=== PATIENT | female | born 1940 | race Caucasian/White ===

== ENCOUNTER 2020-09-03 08:07 | Outpatient (REF) | payer OTHER, SELFPAY ==
--- OUTSIDE RECORDS SUMMARY | 2020-09-04 08:40 | XMS_ITS | Clinical Summary ---
:1940 Author Organization [email or web address] [place] [address] Care Team Providers Name Role Phone Nelly Simmons MD Primary Care Provider Allergies No Known Allergies Medications Medication Sig Dispensed Refills Start Date End Date Status cholecalciferol (VITAMIN Take 1,000 Units 0 Active D3) 1,000 unit tablet by mouth once daily. multivitamin oral Take 1 tablet by 0 Active mouth once daily. calcium carbonate Take 600 mg by 0 Active (OS-NITIN) 600 mg calcium mouth once (1,500 mg) tablet daily. tiotropium (SPIRIVA) 18 Inhale 18 mcg 0 Active mcg inhalation capsule into the lungs once daily. zolpidem (AMBIEN) 5 MG Take 5 mg by 0 Active tablet mouth once nightly as needed for sleep. metoprolol tartrate Take 0.5 tablets 30 tablet 0 10/11/2016 Active (LOPRESSOR) 25 MG tablet (12.5 mg total) by mouth 2 (two) times a day. Active Problems Problem Noted Date Atrial fibrillation 10/11/2016 A-fib 10/10/2016 Atrial fibrillation with rapid ventricular response Asthma 10/10/2016 Immunizations Name Administration Dates Next Due Covid-19 Vaccine Mrna (Pf) (OnRequest Images/MitoProd) 04/07/2020 Social History Tobacco Use Types Packs/Day Years Used Date Never Smoker Alcohol Use Drinks/Week oz/Week Comments Yes 3 Glasses of wine 3.0 Sex Assigned at Date Recorded Not on file Last Filed Vital Signs Vital Sign Reading Time Taken Comments Blood Pressure 110/68 10/11/2016 8:15 AM PDT Pulse 73 10/11/2016 9:59 AM PDT Temperature 35.9 ??C (96.6 ??F) 10/11/2016 8:14 AM PDT Respiratory Rate 20 10/11/2016 8:14 AM PDT Oxygen Saturation 95% 10/11/2016 8:14 AM PDT Inhaled Oxygen Concentration - - Weight 72.9 kg (160 lb 12.8 oz) 10/11/2016 5:00 AM PDT Height 166.4 cm (5' 5.5) 10/10/2016 5:30 PM PDT Body Mass Index 26.35 10/10/2016 5:30 PM PDT Plan of Treatment Health Maintenance Due Date Last Done Comments DXA SCAN 1940 HEPATITIS C SCREENING 06/28/1959 DTAP/TDAP/TD VACCINES (1 - Tdap) 1960 SHINGLES VACCINES (1 of 2) 06/28/1991 PNEUMOCOCCAL 65+ YRS (1 of 1 - 2006 [id number]) MEDICARE ANNUAL WELLNESS (YEAR 2 03/13/2017 or FIRST YEAR if no IPPE) DEPRESSION SCREENING (12+) 03/12/2020 FALLS RISK SCREENING 03/12/2020 TOBACCO CESSATION SCREENING (12+) 03/12/2020 COVID-19 VACCINE (2 - Pfizer 04/28/2020 04/07/2020 2-dose series) INFLUENZA VACCINE Completed 12/05/2019, 12/16/2018, 12/31/2017, Additional history exists Insurance Payer Benefit Plan / Subscriber ID Effective Dates Phone Addre ss Type Group COVID VACCINE COVID VACCINE [id number] Effective for all ADMIN / TESTING ADMIN / TESTING dates [employer] [place] [place] [id number] 03/12/2016-Present MEDICARE MEDICARE PPO Advance Directives Documents on File Type Date Recorded Patient Package Delivery Room Service Runner Explanati on Advanced Directives Latest Code Status on File Code Status Date Activated Date Inactivated Comments Full Code 10/10/2016 5:14 AM 10/11/2016 2:09 PM This code status was determined by: Spouse Patient
--- OUTSIDE RECORDS SUMMARY | 2020-09-04 08:40 | XMS_ITS | Clinical Summary ---
:1940 Author Organization [facility] Address [address] [place] [address] Care Team Providers Name Role Phone Pcp Primary Care Provider Unavailable Social History Tobacco Use Types Packs/Day Years Used Date Never Assessed Sex Assigned at Date Recorded Not on file Plan of Treatment Health Maintenance Due Date Last Done Comments Hepatitis C Screening 1940 COVID-19 Vaccine (1) 1953 Depression Screening (PHQ-2) 1953 DTaP, Tdap, and Td Vaccines (1 - 1960 Tdap) Lipid Disorders Screening 1986 Zoster Vaccine (1 of 2) 06/28/1991 Osteoporosis Screening 2006 Pneumococcal Vaccine: 65+ years (1 2006 of 1 - PPSV23) Influenza Vaccine (Season Ended) 2020 Hepatitis A Vaccine Aged Out No longer el igible based on patient's age to complete this topic Hepatitis B Vaccine Aged Out No longer el igible based on patient's age to complete this topic Insurance Payer Benefit Plan / Subscriber ID Effective Phone Address T ype Group Dates [facility] [id number] 2016-[facility] MEDADVANTAGE PPO nt MEDICARE
--- OUTSIDE RECORDS SUMMARY | 2020-09-04 08:40 | XMS_ITS | Encounter Summary ---
:1940 Author Organization [employer] [facility] [place] [address] Care Team Providers Name Role Phone Nelly Simmons MD Primary Care Provider Reason for Visit Reason Comments Atrial Fibrillation Auth/Cert Status Reason Specialty Diagnoses / Procedures Referred By Edgar mac Referred To Contact Encounter Details Date Type Department Care Team [facility] [address] [place] [id number] Atrial fibrillation 10/[facility] Zachary Wallace MD [address] [place] [address] with jake [place] [address] [place] [address] [place] [address] ventricular response Med/Surg (HCC) (Primary Dx) [address], [address] [place] [id number] Social History Tobacco Use Types Packs/Day Years Used Date Never Smoker Alcohol Use Drinks/Week oz/Week Comments Yes 3 Glasses of wine 3.0 Sex Assigned at Date Recorded Not on file documented as of this encounter Last Filed Vital Signs Vital Sign Reading [...] Mass Index 26.35 10/10/2016 5:30 PM PDT documented in this encounter Functional Status Functional Status Response Date of Assessment Patient's Vision Adequate to Safely Complete Daily Yes 10/10/2016 Activities Patient's Judgement Adequate to Safely Complete Daily Yes 10/10/2016 Activities Cognitive Status Response Date of Assessment Patient's Memory Adequate to Safely Complete Daily Yes 10/10/2016 Activities documented as of this encounter Discharge Summaries Candace Hsu, - 10/11/2016 9:38 AM PDT HOSPITAL DISCHARGE SUMMARY Patient Name: Kylee Lundberg Admit Date: 10/10/2016 Discharge Date: 10/11/2016 ADMISSION DIAGNOSES: Atrial fibrillation with rapid ventricular response (HCC) [I48.91] Present on Admission: ??? A-fib (HCC) ??? Atrial fibrillation with rapid ventricular response (HCC) ??? Atrial fibrillation (HCC) DISCHARGE DIAGNOSES: Active Problems: A-fib (HCC) Atrial fibrillation with rapid ventricular response (HCC) Asthma Atrial fibrillation (HCC) SPECIALIST: NONE PROCEDURES PERFORMED: ?? XR Chest 2 Views [[id number]] Resulted: 10/10/16 0059 ? Order Status: Completed Updated: 10/10/16 0100 ? Narrative: ? Examination: ??10/10/2016 12:58 AM CHEST X-RAY HISTORY: Chest pain Comparison: ??No relevant comparisons are available at the time of dictation. TECHNIQUE: ??Two views FINDINGS: ?? Parenchyma/Pleura: ??There is no evidence for pneumothorax, pleural effusion or airspace opacity. Linear stranding is seen in the bilateral costophrenic sulci. Emphysematous changes are present. ??Milddiaphragmatic flattening is present. Heart and vasculature: ??Normal. Mediastinum/Aorta: ??Normal. Abdomen: ??Normal. Osseous: ??No acute process. ? Impression: ? Bilateral linear stranding is seen in the bases likely represent scarring with differential of chronic atelectasis. 2. Emphysematous changes are present with mild hyperinflation. Transthoracic Echocardiogram Indication: Atrial Fibrillation BP: ? 115/70 HR: ? 70 Rhythm: ? Sinus Findings ? Technical Comments: Color flow images and Doppler velocities were obtained to assess for valvular insufficiency, stenosis and/or intracardiac shunts. The study quality is fair. ?? Left Ventricle: The left ventricular chamber size is normal. The left ventricular wall thickness is normal. There is normal left ventricular systolic function. The ejection fraction is calculated to be 64% using the Treadwell's method. ??There is normal diastolic function of the left ventricle. Left Atrium: Left atrial size is normal. Right Ventricle: The right ventricular cavity size is normal. The right ventricular global systolic function is low normal. Right Atrium: The right atrium is mildly enlarged. ?? Aortic Valve: The aortic valve is trileaflet. Color Flow Doppler and Doppler velocities: there is no evidence of aortic insufficiency. Mitral Valve: Mild mitral leaflet calcification is visualized. There is mitral annular calcification. Trace mitral regurgitation is recorded. Tricuspid Valve: The tricuspid valve leaflets are normal. ??Mild tricuspid regurgitation is recorded. Pulmonic Valve: The pulmonic valve appears normal. Color Flow Doppler and Doppler velocities: there is no evidence of pulmonic regurgitation. Pericardium: The pericardium appears normal. Aorta: The aorta appears normal. ?? Pulmonary Artery Hypertension: There is evidence of borderline pulmonary hypertension. Venous: The inferior vena cava appears normal. There is a greater than 50% respiratory change in the inferior vena cava dimension. Summary: There is no previous study for comparison. An echocardiogram is recommended in 2 years to follow-up. Conclusions: There is normal left ventricular systolic and diastolic function. The LV ejection fraction is calculated to be 64% using the Treadwell's method. The right atrium is mildly enlarged. Mild tricuspid regurgitation is recorded. HOSPITAL COURSE: This is a 76 y.o. female with past medical history significant for atrial fibrillation for last 8 - 12 YRS, on metoprolol but not anticoagulated, history of asthma/COPD presented to emergency department with fast irregular heartbeat. Patient was found to have atrial fibrillation with RVR. Blood pressure was 180/115 and heart rates in 160s. On admission patient was treated with esmolol drip and heparin infusion and then transition to oral metoprolol and she spontaneously converted to normal sinus rhythm with HR in 70-80s. Patient remained hemodynamically stable. Discussed her stroke risk prevention strategies with medication, but patient wanted to discuss this in more detail with primary care doctor and she already was recommended to have Gen. cardiology evaluation. Her CHADS-Vasc score is at least 3 based on the gender and age. Echocardiogram showed normal EF with mild tricuspid regurgitation. Patient will continue with metoprolol 12.5 mg twice a day for heart rate control. In addition recommended to start full dose aspirin. She was given a handout about the atrial fibrillation and about the different medications that could prevent the stroke risk and risk of bleeding. EXAM: General Eval: WDWN, calm, alert, cooperative in NAD HEENT: NCAT, no TM, Oropharynx clear, sclera anicteric, conjunctiva clear, no JVD, no cervical or supraclavicular MARLENE, carotid pulsations 2+ bilaterally w/o bruit Lungs: CTA, good patient effort Heart: Regular rate and rhythm without rub murmur or gallop, PMI is non palpable Abdomen: NABS, soft, flat, non- distended, nontender without HSM Extremities: Warm and dry without cyanosis, clubbing, edema, or rash; dorsalis pedis pulses are 2+ bilaterally Neuro: No neuro focal deficits. CONDITION AT DISCHARGE: Stable and Improved. CODE STATUS: Full Code ACTIVITIES: As tolerated FOLLOW UP: Contact information for follow-up Oren Simmons MD Specialty: Family Medicine Relationship: PCP - General Jeniffer [address] [place] [address] Next Steps: Call today Instructions: For hospitalization discharge follow up IN THE NEXT 2 WEEKS. LABORATORY STUDIES ON THE DAY OF DISCHARGE: Recent Results (from the past 24 hour(s)) Troponin I Collection Time: 10/10/16 11:23 AM Result Value Ref Range Troponin I <0.012 <0.034 ng/mL Unfractionated heparin anti-10A level Collection Time: 10/10/16 3:41 PM Result Value Ref Range Heparin assay UFH (Anti-Xa) 0.61 0.30 - 0.70 IU/mL Unfractionated heparin anti-10A level Collection Time: 10/10/16 9:44 PM Result Value Ref Range Heparin assay UFH (Anti-Xa) 0.47 0.30 - 0.70 IU/mL Basic metabolic panel Collection Time: 10/11/16 7:20 AM Result Value Ref Range Sodium 143 135 - 145 mmol/L Potassium 3.8 3.5 - 5.1 mmol/L Chloride 109 (H) 98 - 107 mmol/L CO2,Total 24 22 - 30 mmol/L Anion Gap 10 5 - 16 mmol/L Osmolality, Calculated 285 275 - 295 mOsm/K Glucose 86 74 - 106 mg/dL Calcium 8.3 (L) 8.4 - 10.4 mg/dL BUN 14 7 - 17 mg/dL Creatinine 0.65 0.52 - 1.04 mg/dL BUN/Creatinine Ratio 22 7 - 24 GFR if >90 >=60 mL/min/1.73m2 GFR if not 89 >=60 mL/min/1.73m2 CBC and differential Collection Time: 10/11/16 7:20 AM Result Value Ref Range WBC 7.3 3.8 - 11.0 K/mcL RBC 4.78 3.70 - 5.10 M/mcL Hemoglobin 14.0 11.3 - 15.5 g/dL Hematocrit 43 34 - 46 % MCV 89 80 - 100 fL MCH 29.3 27.0 - 34.0 pg MCHC 32.9 32.0 - 35.5 g/dL RDW 14.1 11.0 - 15.5 % Platelets 248 150 - 400 K/mcL MPV 11.2 8.8 - 12.0 fL Nucleated RBC 0 0 - 0 % nRBC# 0.00 10*3/uL Neutrophils % 39 38 - 70 % Lymphocytes % 52 (H) 15 - 48 % Monocytes % 7 0 - 12 % Eosinophils % 2 0 - 7 % Basophils % 0 0 - 2 % Neut# 2.8 1.9 - 7.4 K/mcL Lymph# 3.8 1.0 - 3.9 K/mcL Monos# 0.5 0.0 - 0.8 K/mcL Eos# 0.2 0.0 - 0.5 K/mcL Baso# 0.0 0.0 - 0.1 K/mcL Immature Granulocytes % 0 % Immature Granulocytes Absolute 0.0 K/mcL RESULTS PENDING AT THE TIME OF DISCHARGE: NONE DIET: regular diet ALLERGIES: No Known Allergies MEDICATIONS: Medication List START taking these medications aspirin 325 MG EC tablet Take 1 tablet (325 mg total) by mouth once daily. metoprolol tartrate 25 MG tablet Commonly known as: LOPRESSOR Take 0.5 tablets (12.5 mg total) by mouth 2 (two) times a day. CONTINUE taking these medications calcium carbonate 600 mg calcium (1,500 mg) tablet Commonly known as: OS-NITIN cholecalciferol 1,000 unit tablet Commonly known as: VITAMIN D3 multivitamin oral tiotropium 18 mcg inhalation capsule Commonly known as: SPIRIVA zolpidem 5 MG tablet Commonly known as: AMBIEN STOP taking these medications metoprolol succinate 25 MG 24 hr tablet Commonly known as: TOPROL-XL Medication Instructions: PLEASE NOTE MEDICATION CHANGES Where to Get Your Medications [id number] [facility] [address] ??? aspirin 325 MG EC tablet ??? metoprolol tartrate 25 MG tablet TIME SPENT ON DISCHARGE SERVICES: MORE THAN 30 MINUTES Candace Hsu DO 10/11/2016 9:38 AM documented in this encounter Discharge Instructions MedicationsCandace Hsu DO - 10/11/2016 9:35 AM PDTPLEASE NOTE MEDICATION CHANGES Discharge Instr - ActivityCandace Hsu DO - 10/11/2016 9:35 AM PDTRESUME YOUR REGULAR ACTIVITY Discharge Instr - DietCandace Hsu DO - 10/11/2016 9:35 AM PDTRESUME YOUR REGULAR DIET Additional Candace Knapp DO - 10/11/2016 Below are important instructions written by your doctor It was our pleasure being a part of your care team at [facility] You were admitted to the hospital because of: ?? IRREGULAR FAST HEART BEAT (ATRIAL FIBRILLATION) which we treated with MEDICATION After leaving the hospital it is important that you do these things: ?? TAKE MEDICATIONS PRESCRIBED ?? START TAKING ASPIRIN UNTIL YOU HAVE A DISCUSSION WITH YOUR PCP OR [employer] MANAGER IF YOU NEED TO BE ON DIFFERENT MEDICATION FOR STROKE PREVENTION Please contact Oren Simmons MD or return to the Emergency Department if you have any of these signs or symptoms: ?? CHEST PAIN, UNCONTROLLED HEART RATE, SHORTNESS OF BREATH, PASSING OUT OR LEG SWELLING. Please see the rest of this document for follow up appointments and medication changes: Sincerely, Candace Hsu, DO AttachmentsThe following attachments cannot be sent through Care Everywhere. ATRIAL FIBRILLATION (MONGOLIAN)ATRIAL FIBRILLATION, [id number] (MONGOLIAN) METOPROLOL TABLETS (MONGOLIAN)documented in this encounter Medications at Time of Discharge Medication Sig Dispensed Refills Start Date End Date calcium carbonate (OS-NITIN) Take 600 mg by 0 600 mg calcium (1,500 mg) mouth once daily. tablet cholecalciferol (VITAMIN Take 1,000 Units 0 D3) 1,000 unit tablet by mouth once daily. metoprolol tartrate Take 0.5 tablets 30 tablet 0 10/11/2016 (LOPRESSOR) 25 MG tablet (12.5 mg total) by mouth 2 (two) times a day. multivitamin oral Take 1 tablet by 0 mouth once daily. tiotropium (SPIRIVA) 18 mcg Inhale 18 mcg into 0 inhalation capsule the lungs once daily. zolpidem (AMBIEN) 5 MG Take 5 mg by mouth 0 tablet once nightly as needed for sleep. aspirin 325 MG EC tablet Take 1 tablet (325 30 tablet 11 04/201610/11/2017 mg total) by mouth once daily. documented as of this encounter Progress Notes Prabhakar Dhillon, PharmD - 10/10/2016 10:16 PM PDT PHARMACY SERVICES ??? HEPARIN INFUSION PER PHARMACY PROTOCOL Assessment/ Plan Patient is currently THERAPEUTIC on heparin, with infusion at 900 units/hr. 1. Heparin Bolus: none needed per protocol 2. Heparin Drip Rate: Continue at current rate of 900 units/hr per protocol 3. Please draw next STAT Anti-Xa at 1000 on 10/11 RN to notify pharmacy for assessment if level has returned. 4. Pharmacy will continue to monitor the patient???s coagulation status daily. Subjective / Objective Dr. Denzel Morris requested heparin infusion dosing per pharmacy weight based protocol. Kylee Lundberg is a 76 y.o. female being treated with heparin for ACS/OTHER. Other anticoagulation: none Recent Labs 10/10/16 0025 10/10/16 0222 10/10/16 0814 10/10/16 1541 10/10/16 2144 HEPARINUNFR -- < > <0.10* 0.73* 0.61 0.47 INR -- -- 0.9 -- -- -- HGB 14.5 -- 14.4 -- -- -- HCT 43 -- 43 -- -- -- PLT 250 -- 245 -- -- -- PTT -- -- 28 -- -- -- < > = values in this interval not displayed. INFORMATIONAL ONLY - FROM HEPARIN CONSULT HEPARIN ADMINISTRATION WORKSHEET Disease State: ACS/Other NOT FOR USE IN STROKE Patient: Kylee LUNDBERG Physician: Dr Robin Morris Room Number: ED-20 Weight (kg): 73 Height (cm.): 168 Diagnosis: ACS / Other [place] Weight (kg): 59.7 Dosing Weight (kg): 65 Dosing weight will be used if the patient's actual body weight is greater than 20% above their idealbody weight To Begin Heparin Therapy: 1. Calculations based on a body weight of: 65 kg 2. Bolus Heparin: 70 Units/kg = 4000 Units (Bolus) 3. Heparin Continuous Infusion: 15 Units/kg/Hour = 1000 Units/Hour = 20 mL/h ITEM #4. Order an Anti-Xa (HEP UFH) level 6 hours after any dosage change, adjusting heparin infusion by the sliding scale below. When two (2) consecutive Anti-Xa (HEP UFH) levels are therapeutic, order the Anti-Xa level daily (at 1000), and re-adjust the heparin drip if needed. Lab to process each Anti-Xa (HEP UFH) level on a STAT basis. Laboratory: Baseline Hemogram, PTT, and PT/INR prior to heparin (if no baseline labs available). Hemogram every 3 days while on Heparin. Adjust Heparin infusion based on this sliding Anti-Xa level scale: Anti-Xa level (Units/mL): Bolus and Drip Adjustments, as Follows: Less than 0.1 Bolus Dose: Increase rate from previous dose: 4600 Units 200 Units/Hour *See item #4 above for follow-up Anti-Xa level testing 0.1 - 0.29 Bolus Dose: Increase rate from previous dose: 2300 Units 100 Units/Hour *See item #4 above for follow-up Anti-Xa level testing 0.3 - 0.7 THERAPEUTIC RANGE No Change *See item #4 above for follow-up Anti-Xa level testing 0.71 - 0.8 Decrease from previous dose: 100 Units/Hour *See item #4 above for follow-up Anti-Xa level testing 0.81 - 1 Hold Infusion for 30 mins. Decrease rate from previous dose: 200 Units/Hour *See item #4 above for follow-up Anti-Xa level testing Greater than 1 Hold Infusion for 60 mins. Decrease rate from previous dose: 200 Units/Hour *See item #4 above for follow-up Anti-Xa level testing Thank You, Prabhakar Dhillon, PharmD 10/10/2016 TrandeCandace shpeherd DO - 10/10/2016 4:24 PM PDTReviewed notes and labs Reviewed Care Every Where Patient was examined by me Reports feeling well. No shortness of breath She usually feels her atrial fibrillation, the day before her atrial fibrillation was at 80s, but this morning it was fast. She takes metoprolol. Diagnosis is since 2014 BP 141/78 (BP Location: Right arm, Patient Position: Lying) Pulse 69 Temp 36.8 ??C (98.2 ??F) (Oral) Resp 18 Ht 166.4 cm (5' 5.5) Wt 74.1 kg (163 lb 5.8 oz) SpO2 92% BMI 26.77 kg/m2 Gen: NAD, white elderly female laying in bed. HEENT: Atraumatic, normocephalic, PERRLA. Moist mucous membranes Cardiac: Regular rate and rhythm. No murmur. No edema. Lungs: Clear to auscultation bilaterally no wheezes or crackles Neuro: No neuro focal deficits Psych: Oriented to person time and place and situation. Plan: Pending echocardiogram Continue with metoprolol Continue with IV heparin for stroke risk reduction Given patient's age and that she speak now most likely she will need long-term anticoagulation especially when her heart rates are very from normal 80s to accelerated rhythm. We will discuss options for anticoagulation in more detail tomorrow as we have results of her echocardiogram. im, Maggie Jimenes PharmD - 10/10/2016 4:12 PM PDT PHARMACY SERVICES ??? HEPARIN INFUSION PER PHARMACY PROTOCOL Assessment/ Plan Patient is currently THERAPEUTIC on heparin, with infusion at 900 units/hr. 1. Heparin Bolus: none needed per protocol 2. Heparin Drip Rate: Continue at current rate of 900 units/hr per protocol 3. Please draw next STAT Anti-Xa 6 hours after previous therapeutic lab. Draw next lab at 2200 RN [facility] pharmacy for assessment if level has returned. 4. Pharmacy will continue to monitor the patient???s coagulation status daily. Subjective / Objective Dr. Denzel Morris requested heparin infusion dosing per pharmacy weight based protocol. Kylee Lundberg is a 76 y.o. female being treated with heparin for ACS/OTHER. Other anticoagulation: none Recent Labs 10/10/16 0025 10/10/16 0222 10/10/16 0814 10/10/16 1541 HEPARINUNFR -- <0.10* 0.73* 0.61 INR -- 0.9 -- -- HGB 14.5 14.4 -- -- HCT 43 43 -- -- PLT 250 245 -- -- PTT -- 28 -- -- INFORMATIONAL ONLY - FROM HEPARIN CONSULT HEPARIN ADMINISTRATION WORKSHEET Disease State: ACS/Other NOT FOR USE IN STROKE Patient: Kylee LUNDBERG Physician: Dr Robin Morris Room Number: ED-20 Weight (kg): 73 Height (cm.): 168 Diagnosis: ACS / Other [place] Weight (kg): 59.7 Dosing Weight (kg): 65 Dosing weight will be used if the patient's actual body weight is greater than 20% above their idealbody weight To Begin Heparin Therapy: 1. Calculations based on a body weight of: 65 kg 2. Bolus Heparin: 70 Units/kg = 4000 Units (Bolus) 3. Heparin Continuous Infusion: 15 Units/kg/Hour = 1000 Units/Hour = 20 mL/h ITEM #4. Order an Anti-Xa (HEP UFH) level 6 hours after any dosage change, adjusting heparin infusion by the sliding scale below. When two (2) consecutive Anti-Xa (HEP UFH) levels are therapeutic, order the Anti-Xa level daily (at 1000), and re-adjust the heparin drip if needed. Lab to process each Anti-Xa (HEP UFH) level on a STAT basis. Laboratory: Baseline Hemogram, PTT, and PT/INR prior to heparin (if no baseline labs available). Hemogram every 3 days while on Heparin. Adjust Heparin infusion based on this sliding Anti-Xa level scale: Anti-Xa level (Units/mL): Bolus and Drip Adjustments, as Follows: Less than 0.1 Bolus Dose: Increase rate from previous dose: 4600 Units 200 Units/Hour *See item #4 above for follow-up Anti-Xa level testing 0.1 - 0.29 Bolus Dose: Increase rate from previous dose: 2300 Units 100 Units/Hour *See item #4 above for follow-up Anti-Xa level testing 0.3 - 0.7 THERAPEUTIC RANGE No Change *See item #4 above for follow-up Anti-Xa level testing 0.71 - 0.8 Decrease from previous dose: 100 Units/Hour *See item #4 above for follow-up Anti-Xa level testing 0.81 - 1 Hold Infusion for 30 mins. Decrease rate from previous dose: 200 Units/Hour *See item #4 above for follow-up Anti-Xa level testing Greater than 1 Hold Infusion for 60 mins. Decrease rate from previous dose: 200 Units/Hour *See item #4 above for follow-up Anti-Xa level testing Thank You, Maggie Jacques, PharmD 10/10/2016 Steven Mcduffie PharmD - 10/10/2016 9:33 AM PDT PHARMACY SERVICES ??? HEPARIN INFUSION PER PHARMACY PROTOCOL Assessment/ Plan Patient is currently SUPRATHERAPEUTIC on heparin, with infusion at 1000 units/hr. 1. Heparin Bolus: none needed per protocol 2. Heparin Drip Rate: decrease rate to 900 units/hr 3. Please draw next STAT Anti-Xa 6 hours after rate change. Draw next lab at 1600 RN to notify pharmacy for assessment if level has returned. 4. Pharmacy will continue to monitor the patient???s coagulation status daily. Subjective / Objective Dr. Denzel Morris requested heparin infusion dosing per pharmacy weight based protocol. Kylee Lundberg is a 76 y.o. female being treated with heparin for ACS/OTHER. Other anticoagulation: none Recent Labs 10/10/16 0025 10/10/16 0222 10/10/16 0814 HEPARINUNFR -- <0.10* 0.73* INR -- 0.9 -- HGB 14.5 14.4 -- HCT 43 43 -- PLT 250 245 -- PTT -- 28 -- INFORMATIONAL ONLY - FROM HEPARIN CONSULT HEPARIN ADMINISTRATION WORKSHEET Disease State: ACS/Other NOT FOR USE IN STROKE Patient: Kylee LUNDBERG Physician: Dr Robin Morris Room Number: ED-20 Weight (kg): 73 Height (cm.): 168 Diagnosis: ACS / Other [place] Weight (kg): 59.7 Dosing Weight (kg): 65 Dosing weight will be used if the patient's actual body weight is greater than 20% above their idealbody weight To Begin Heparin Therapy: 1. Calculations based on a body weight of: 65 kg 2. Bolus Heparin: 70 Units/kg = 4000 Units (Bolus) 3. Heparin Continuous Infusion: 15 Units/kg/Hour = 1000 Units/Hour = 20 mL/h ITEM #4. Order an Anti-Xa (HEP UFH) level 6 hours after any dosage change, adjusting heparin infusion by the sliding scale below. When two (2) consecutive Anti-Xa (HEP UFH) levels are therapeutic, order the Anti-Xa level daily (at 1000), and re-adjust the heparin drip if needed. Lab to process each Anti-Xa (HEP UFH) level on a STAT basis. Laboratory: Baseline Hemogram, PTT, and PT/INR prior to heparin (if no baseline labs available). Hemogram every 3 days while on Heparin. Adjust Heparin infusion based on this sliding Anti-Xa level scale: Anti-Xa level (Units/mL): Bolus and Drip Adjustments, as Follows: Less than 0.1 Bolus Dose: Increase rate from previous dose: 4600 Units 200 Units/Hour *See item #4 above for follow-up Anti-Xa level testing 0.1 - 0.29 Bolus Dose: Increase rate from previous dose: 2300 Units 100 Units/Hour *See item #4 above for follow-up Anti-Xa level testing 0.3 - 0.7 THERAPEUTIC RANGE No Change *See item #4 above for follow-up Anti-Xa level testing 0.71 - 0.8 Decrease from previous dose: 100 Units/Hour *See item #4 above for follow-up Anti-Xa level testing 0.81 - 1 Hold Infusion for 30 mins. Decrease rate from previous dose: 200 Units/Hour *See item #4 above for follow-up Anti-Xa level testing Greater than 1 Hold Infusion for 60 mins. Decrease rate from previous dose: 200 Units/Hour *See item #4 above for follow-up Anti-Xa level testing Thank You, Steven Wheeler, PharmD 10/10/2016 Stef Bass, [facility] - 10/10/2016 2:07 AM PDT PHARMACY SERVICES ??? HEPARIN INFUSION PER PHARMACY PROTOCOL Assessment/ Plan Patient is currently STARTING on heparin, with infusion at 1000 units/hr. 1. Heparin Bolus: Administer 4000 units per protocol 2. Heparin Drip Rate: Initiate at rate of 1000 units/hr 3. Please draw next STAT Anti-Xa 6 hours after initiation. Draw next lab at 0830 on Oct 10. RN to notify pharmacy for assessment if level has returned. 4. Pharmacy will continue to monitor the patient???s coagulation status daily. Subjective / Objective Dr. Denzel Morris requested heparin infusion dosing per pharmacy weight based protocol. Kylee Lundberg is a 76 y.o. female being treated with heparin for ACS/OTHER. Other anticoagulation: none Recent Labs 10/10/16 0025 HGB 14.5 HCT 43 PLT 250 INFORMATIONAL ONLY - FROM HEPARIN CONSULT HEPARIN ADMINISTRATION WORKSHEET Disease State: ACS/Other NOT FOR USE IN STROKE Patient: Kylee LUNDBERG Physician: Dr Robin Morris Room Number: ED-20 Weight (kg): 73 Height (cm.): 168 Diagnosis: ACS / Other [place] Weight (kg): 59.7 Dosing Weight (kg): 65 Dosing weight will be used if the patient's actual body weight is greater than 20% above their idealbody weight To Begin Heparin Therapy: 1. Calculations based on a body weight of: 65 kg 2. Bolus Heparin: 70 Units/kg = 4000 Units (Bolus) 3. Heparin Continuous Infusion: 15 Units/kg/Hour = 1000 Units/Hour = 20 mL/h ITEM #4. Order an Anti-Xa (HEP UFH) level 6 hours after any dosage change, adjusting heparin infusion by the sliding scale below. When two (2) consecutive Anti-Xa (HEP UFH) levels are therapeutic, order the Anti-Xa level daily (at 1000), and re-adjust the heparin drip if needed. Lab to process each Anti-Xa (HEP UFH) level on a STAT basis. Laboratory: Baseline Hemogram, PTT, and PT/INR prior to heparin (if no baseline labs available). Hemogram every 3 days while on Heparin. Adjust Heparin infusion based on this sliding Anti-Xa level scale: Anti-Xa level (Units/mL): Bolus and Drip Adjustments, as Follows: Less than 0.1 Bolus Dose: Increase rate from previous dose: 4600 Units 200 Units/Hour *See item #4 above for follow-up Anti-Xa level testing 0.1 - 0.29 Bolus Dose: Increase rate from previous dose: 2300 Units 100 Units/Hour *See item #4 above for follow-up Anti-Xa level testing 0.3 - 0.7 THERAPEUTIC RANGE No Change *See item #4 above for follow-up Anti-Xa level testing 0.71 - 0.8 Decrease from previous dose: 100 Units/Hour *See item #4 above for follow-up Anti-Xa level testing 0.81 - 1 Hold Infusion for 30 mins. Decrease rate from previous dose: 200 Units/Hour *See item #4 above for follow-up Anti-Xa level testing Greater than 1 Hold Infusion for 60 mins. Decrease rate from previous dose: 200 Units/Hour *See item #4 above for follow-up Anti-Xa level testing Thank You, Stef Bass RPH 10/10/2016 documented in this encounter H&P Notes Zachary Wallace MD - 10/10/2016 3:55 AM PDT HISTORY & PHYSICAL NOTE PATIENT NAME: Kylee Lundberg DATE OF ADMISSION: 10/10/2016 PRIMARY CARE PHYSICIAN: Oren Simmons MD SPECIALISTS: CHIEF COMPLAINT: Irregular heartbeat REASON FOR ADMISSION: Atrial fibrillation with RVR HISTORY PRESENT ILLNESS: Kylee Lundberg is a 76 y.o. female with past medical history of atrial fibrillation for the past 8-12 years. She describes it as Paroxsymal, on metoprolol 12.5 mg daily, not on anticoagulation , who presented to the ED with chief complaint of irregular heartbeat , patient reports few hours prior to admission patient developed fluttering of heart, she measured her blood pressure at that instance which was 180/115 and her pulse rate was noted to be 160s, she denies shortness of breath , chest pain , lightheadedness , dizziness . In the ED her heart rate was noted to be 150s to 170s, Esmolol gtt and heparin was initiated. Duringmy evaluation telemetry shows normal sinus rhythm with heart rate in 70s. PAST MEDICAL HISTORY: Patient Active Problem List Diagnosis ??? A-fib (HCC) ??? Atrial fibrillation with rapid ventricular response (HCC) ??? Asthma SURGICAL HISTORY: Past Surgical History: Procedure Laterality Date ??? HYSTERECTOMY ??? JOINT REPLACEMENT ALLERGIES: Not on File MEDICATIONS: None ADVANCE DIRECTIVES: Full code SOCIAL HISTORY: Denies smoking, reports occasional alcohol use and occasional marijuana use for sleep, last use was a month ago FAMILY HISTORY: Mother with history of Parkinson, father with history of heart attack REVIEW OF SYSTEMS: As per history of present illness and past medical history. Comprehensive review is otherwise negative. PHYSICAL EXAMINATION: Vital Signs: BP 113/73 Pulse 76 Temp 36.3 ??C (97.4 ??F) (Oral) Ht 167.6 cm (5' 6) Wt 72.6kg (160 lb) SpO2 94% BMI 25.82 kg/m2 General Eval: WDWN, calm, alert, cooperative in NAD HEENT: NCAT, no TM, Oropharynx clear, sclera anicteric, conjunctiva clear, no JVD, no cervical or supraclavicular MARLENE, carotid pulsations 2+ bilaterally w/o bruit Lungs: CTA, good patient effort Heart: Regular rate and rhythm without rub, murmur or gallop, PMI is non palpable Abdomen: NABS, soft, flat, non-distended, nontender without HSM Extremities: Warm and dry without cyanosis, clubbing, edema, or rash; dorsalis pedis pulses are 2+ bilaterally Neuro: Motor strength is 5/5 in all four extremities, sensation intact to light touch LABS: Recent Results (from the past 36 hour(s)) CBC and differential Collection Time: 10/10/16 12:25 AM Result Value Ref Range WBC 7.5 3.8 - 11.0 K/mcL RBC 4.94 3.70 - 5.10 M/mcL Hemoglobin 14.5 11.3 - 15.5 g/dL Hematocrit 43 34 - 46 % MCV 88 80 - 100 fL MCH 29.4 27.0 - 34.0 pg MCHC 33.4 32.0 - 35.5 g/dL RDW 13.8 11.0 - 15.5 % Platelets 250 150 - 400 K/mcL MPV 10.6 8.8 - 12.0 fL Nucleated RBC 0 0 - 0 % nRBC# 0.00 10*3/uL Neutrophils % 44 38 - 70 % Lymphocytes % 46 15 - 48 % Monocytes % 7 0 - 12 % Eosinophils % 2 0 - 7 % Basophils % 0 0 - 2 % Neut# 3.3 1.9 - 7.4 K/mcL Lymph# 3.4 1.0 - 3.9 K/mcL Monos# 0.5 0.0 - 0.8 K/mcL Eos# 0.2 0.0 - 0.5 K/mcL Baso# 0.0 0.0 - 0.1 K/mcL Immature Granulocytes % 0 % Immature Granulocytes Absolute 0.0 K/mcL Comprehensive metabolic panel Collection Time: 10/10/16 12:25 AM Result Value Ref Range Sodium 143 135 - 145 mmol/L Potassium 3.6 3.5 - 5.1 mmol/L Chloride 105 98 - 107 mmol/L CO2,Total 24 22 - 30 mmol/L Anion Gap 14 5 - 16 mmol/L Glucose 128 (H) 74 - 106 mg/dL Calcium 9.0 8.4 - 10.4 mg/dL BUN 17 7 - 17 mg/dL Creatinine 0.69 0.52 - 1.04 mg/dL BUN/Creatinine Ratio 25 (H) 7 - 24 GFR if >90 >=60 mL/min/1.73m2 GFR if not 83 >=60 mL/min/1.73m2 Osmolality, Calculated 288 275 - 295 mOsm/K Protein,Total 6.7 6.3 - 8.2 g/dL Albumin 4.1 3.5 - 5.0 g/dL Globulin 2.6 1.8 - 3.5 g/dL A/G Ratio 1.6 (No normals established) Bilirubin,Total 0.4 0.2 - 1.3 mg/dL Alkaline Phosphatase 66 38 - 126 IU/L ALT (SGPT) 37 9 - 52 IU/L AST (SGOT) 30 14 - 36 U/L TSH with reflex to FT4, if indicated Collection Time: 10/10/16 12:25 AM Result Value Ref Range TSH 3.744 0.470 - 4.680 uIU/mL Troponin I, POC Collection Time: 10/10/16 12:31 AM Result Value Ref Range RALS Troponin I 0.00 0 - 0.08 ng/mL CBC, no diff (hemogram) Collection Time: 10/10/16 2:22 AM Result Value Ref Range WBC 8.3 3.8 - 11.0 K/mcL RBC 4.84 3.70 - 5.10 M/mcL Hemoglobin 14.4 11.3 - 15.5 g/dL Hematocrit 43 34 - 46 % MCV 88 80 - 100 fL MCH 29.8 27.0 - 34.0 pg MCHC 33.6 32.0 - 35.5 g/dL RDW 14.0 11.0 - 15.5 % Platelets 245 150 - 400 K/mcL MPV 10.5 8.8 - 12.0 fL Protime-INR baseline Collection Time: 10/10/16 2:22 AM Result Value Ref Range Protime 12.5 11.8 - 14.0 sec INR 0.9 0.9 - 1.1 Heparin level - STAT Anti-Xa level q6h x 2 Collection Time: 10/10/16 2:22 AM Result Value Ref Range Heparin assay UFH (Anti-Xa) <0.10 (L) 0.30 - 0.70 IU/mL Activated partial thromboplastin time Collection Time: 10/10/16 2:22 AM Result Value Ref Range aPTT 28 26 - 36 sec ASSESSMENT: Patient Active Problem List Diagnosis ??? A-fib (HCC) ??? Atrial fibrillation with rapid ventricular response (HCC) ??? Asthma PLAN: A. fib with RVR - Admit under observation with telemetry - TSH within normal range - Trend troponin - will obtain echocardiogram - start metoprolol 12.5 by mouth twice a day, esmolol gtt was started in the ED, will plan on titrating it off to goal heart rate of less than 110 - CHADsvasc of 3, (age and female sex)- Anticoagulation with heparin, consider NOAC Asthma- stable DVT ppx- on heparin drip ZACHARY WALLACE MD 10/10/2016 3:56 AM documented in this encounter ED Notes Odilia Haddad RN - 10/10/2016 4:58 PM PDTPt is alert and oriented x 4/4, pain free, speaking full sentences. Wheeled to the floor via gurney by this RN. Pt on heparin drip for transport. Running at 900units/hr via pump. Odilia Barbosa RN - 10/10/2016 4:16 PM PDTPt is pain free. Frustrated because she is still in the ER. There is still not a ready bed for her on the floor. Odilia Barbosa RN - 10/10/2016 3:44 PM PDTLab at bedside for xa draw. Pt them ambulated to the bathroom. Gait steady. Pt is upset about still being in the ED. This RN let her know again that we are working on getting her admitted to the floor and that we are just waiting for a room. Odilia Barbosa RN - 10/10/2016 2:19 PM PDTPt is sleeping. Done with her lunch. No acute distress. Odilia Barbosa RN - 10/10/2016 1:26 PM PDTPt ambulated to the bathroom. Gait steady. Odilia Barbosa RN - 10/10/2016 11:12 AM PDTPt is sitting up in bed reading the newspaper. No acute distress. Odilia Barbosa RN - 10/10/2016 9:18 AM PDTPt was given a breakfast tray. Sitting up in bed eating. Odilia Barbosa RN - 10/10/2016 8:45 AM Gavin RN ordered breakfast for pt per her request. Odilia Barbosa RN - 10/10/2016 7:54 AM PDTPt is resting quietly. at bedside. No acute distress. Odilia Barbosa RN - 10/10/2016 7:21 AM PDTReceived report from Samara SOLORIO and assumed pt care. Pt was up tot he bedside commode to urinate. Now back in bed. Pain free. No acute distress. Samara Valerio RN - 10/10/2016 5:34 AM PDTPatient appears to be sleeping, no distress noted at this time. Samara Beach RN - 10/10/2016 3:30 AM PDTDr. Wallace at bedside. Denzel Flores MD - 10/10/2016 12:16 AM PDT [facility] EMERGENCY DEPARTMENT PHYSICIAN ASSESSMENT Patient Name: Kylee Lundberg : 1940 Primary Care Provider: Oren Simmons MD Date of Service: 10/10/2016 [place] [facility] History Taken From: the patient. CHIEF COMPLAINT: Atrial Fibrillation HISTORY OF PRESENT ILLNESS: Kylee Lundberg is a 76 y.o. female seen for complaints of a rapid heartbeat. Patient does have a history of atrial fibrillation and is apparently had it for several years. She has never required a cardioversion the patient states that she intermittently pops in and out of atrial fibrillation and normally she can control it by taking a pill of metoprolol. On rare occasion she has to take 1- 1/2 pills. The patient's last episode of atrial fibrillation she believes was 2- 3 weeks ago. On 10/08/16 the patient had an episode of atrial fibrillation that began at approximately 2000 hrs. and persisted until she went to bed that night. She took 37.5 mg of metoprolol but continued to have an irregular heartbeat. She states that she otherwise felt okay and contacted her primary care provider in the morning but that she did not need to seek immediate medical attention. The patient checked her pulse in the morning and felt that she was out of her atrial fibrillation. This evening at 2230 hrs. her heart began racing. Her heart rate increased to 150-170. He had no chest pain, pressure, shortness of breath, nausea, vomiting, or diaphoresis associated with the above complaints. She presents now with complaints of a rapid heartbeat. Patient is brought in by ambulance. She did take 25 mg of her metoprolol at 2230 hrs. She received 6 mg of additional metoprolol while in route by ambulance. The patient denies any history of thyroid disease or heart valve abnormality. She does not have a drop forge hand but she's been referred to one in [place]. Patient utilizes metoprolol 25 mg tablets. She takes half a pill every day in order to help suppressthe arrhythmia, 1-1-1/2 pills if she develops the arrhythmia. PAST MEDICAL HISTORY: Atrial fibrillation PAST SURGICAL HISTORY: Past Surgical History: Procedure Laterality Date ??? HYSTERECTOMY ??? JOINT REPLACEMENT fractured ankle CURRENT MEDICATIONS: Current Discharge Medication List CONTINUE these medications which have NOT CHANGED Details calcium carbonate (OS-NITIN) 600 mg calcium (1,500 mg) tablet Take 600 mg by mouth once daily. cholecalciferol (VITAMIN D3) 1,000 unit tablet Take 1,000 Units by mouth once daily. metoprolol succinate (TOPROL-XL) 25 MG 24 hr tablet Take 25 mg by mouth once daily. multivitamin oral Take 1 tablet by mouth once daily. tiotropium (SPIRIVA) 18 mcg inhalation capsule Inhale 18 mcg into the lungs once daily. zolpidem (AMBIEN) 5 MG tablet Take 5 mg by mouth once nightly as needed for sleep. ALLERGIES: No Known Allergies SOCIAL HISTORY: The patient reports that she has never smoked. She does not have any smokeless tobacco history on file. She reports that she drinks about 1.8 oz of alcohol per week She reports that she does not use illicit drugs. she lives with her . Patient rarely consumes alcohol but did have some this evening. FAMILY HISTORY: No premature coronary artery disease but father did have an ND in his 70s REVIEW OF SYSTEMS Constitutional: Denies fever, chills, weakness or fatigue. Eyes: Denies photophobia or discharge. ENT: Denies sore throat or ear pain. Respiratory: Positive for chronic cough/COPD unchanged from baseline Cardiovascular: Denies chest pain, positive for palpitations and tachycardia GI: Denies abdominal pain, nausea, vomiting, or diarrhea. Normal appetite : No dysuria. No flank pain. Musculoskeletal: Denies back pain. Denies extremity pain or swelling. Skin: Denies rash, bruising or bleeding Neurologic: Denies headache, focal weakness or sensory changes. No dizziness Endocrine: No polyuria or polydipsia Lymphatic: Denies swollen glands. Psychiatric: Positive for severe stress, recent All systems negative except as documented above. PHYSICAL EXAMINATION Vital Signs: Temperature 36.5, blood pressure 101/79, heart rate 136, saturations 95% on room air, respiratory rate 18 Constitutional: Pleasant, well-nourished, well-developed female who is alert and cooperative she isnontoxic in appearance Head: Normocephalic, atraumatic Eyes: PERRL, EOMI, conjunctiva normal, no discharge. Nose: No rhinorrhea. Mouth: Oropharynx moist. No exudates. Neck: Nontender, supple, no lymphadenopathy Lymphatic: No lymphadenopathy noted. Cardiovascular: Tachycardic irregular rate and rhythm, no murmurs, no rubs, no gallops. Intact distal pulses, no tenderness, no cyanosis, no clubbing. Respiratory: Normal breath sounds, no respiratory distress, no wheezing, no chest tenderness. Abdomen: Bowel sounds are present. Abdomen is soft, no tenderness, no masses, no rebound or guarding. No organomegaly. No hernia. : No CVA tenderness. Bladder is nontender and not distended. Skin: Warm, dry, no erythema, no rash, no edema. Back: No tenderness Musculoskeletal: No tenderness to palpation or major deformities noted. No back or cervical spine tenderness. No edema. Neurologic: Alert & conversant. Normal sensation and strength in the upper and lower extremities. No focal deficits noted. Psychiatric: Normal affect, mood and judgment LABS: Results for orders placed or performed during the hospital encounter of 10/10/16 CBC and differential Collection Time: 10/10/16 12:25 AM Result 1 Ref Range WBC 7.5 3.8 - 11.0 K/mcL RBC 4.94 3.70 - 5.10 M/mcL Hemoglobin 14.5 11.3 - 15.5 g/dL Hematocrit 43 34 - 46 % MCV 88 80 - 100 fL MCH 29.4 27.0 - 34.0 pg MCHC 33.4 32.0 - 35.5 g/dL RDW 13.8 11.0 - 15.5 % Platelets 250 150 - 400 K/mcL MPV 10.6 8.8 - 12.0 fL Nucleated RBC 0 0 - 0 % nRBC# 0.00 10*3/uL Neutrophils % 44 38 - 70 % Lymphocytes % 46 15 - 48 % Monocytes % 7 0 - 12 % Eosinophils % 2 0 - 7 % Basophils % 0 0 - 2 % Neut# 3.3 1.9 - 7.4 K/mcL Lymph# 3.4 1.0 - 3.9 K/mcL Monos# 0.5 0.0 - 0.8 K/mcL Eos# 0.2 0.0 - 0.5 K/mcL Baso# 0.0 0.0 - 0.1 K/mcL Immature Granulocytes % 0 % Immature Granulocytes Absolute 0.0 K/mcL Comprehensive metabolic panel Collection Time: 10/10/16 12:25 AM Result 1 Ref Range Sodium 143 135 - 145 mmol/L Potassium 3.6 3.5 - 5.1 mmol/L Chloride 105 98 - 107 mmol/L CO2,Total 24 22 - 30 mmol/L Anion Gap 14 5 - 16 mmol/L Glucose 128 (H) 74 - 106 mg/dL Calcium 9.0 8.4 - 10.4 mg/dL BUN 17 7 - 17 mg/dL Creatinine 0.69 0.52 - 1.04 mg/dL BUN/Creatinine Ratio 25 (H) 7 - 24 GFR if >90 >=60 mL/min/1.73m2 GFR if not 83 >=60 mL/min/1.73m2 Osmolality, Calculated 288 275 - 295 mOsm/K Protein,Total 6.7 6.3 - 8.2 g/dL Albumin 4.1 3.5 - 5.0 g/dL Globulin 2.6 1.8 - 3.5 g/dL A/G Ratio 1.6 (No normals established) Bilirubin,Total 0.4 0.2 - 1.3 mg/dL Alkaline Phosphatase 66 38 - 126 IU/L ALT (SGPT) 37 9 - 52 IU/L AST (SGOT) 30 14 - 36 U/L TSH with reflex to FT4, if indicated Collection Time: 10/10/16 12:25 AM Result 1 Ref Range TSH 3.744 0.470 - 4.680 uIU/mL ECG 15 lead Collection Time: 10/10/16 12:26 AM Result 1 Ref Range MUSE VENTRICULAR RATE 131 BPM MUSE ATRIAL RATE 174 BPM MUSE QRS DURATION 70 ms MUSE Q-T INTERVAL 306 ms MUSE QTC CALCULATION 451 ms MUSE CALCULATED R 75 degrees MUSE CALCULATED T 62 degrees MUSE DIAGNOSIS Poor data quality, interpretation may be adversely affected Atrial fibrillation with rapid ventricular response Nonspecific ST abnormality Abnormal ECG No previous ECGs available Confirmed by Anshu Goel MD ([id number]) on 10/10/2016 7:58:48 PM Troponin I, POC Collection Time: 10/10/16 12:31 AM Result 1 Ref Range RALS Troponin I 0.00 0 - 0.08 ng/mL CBC, no diff (hemogram) Collection Time: 10/10/16 2:22 AM Result 1 Ref Range WBC 8.3 3.8 - 11.0 K/mcL RBC 4.84 3.70 - 5.10 M/mcL Hemoglobin 14.4 11.3 - 15.5 g/dL Hematocrit 43 34 - 46 % MCV 88 80 - 100 fL MCH 29.8 27.0 - 34.0 pg MCHC 33.6 32.0 - 35.5 g/dL RDW 14.0 11.0 - 15.5 % Platelets 245 150 - 400 K/mcL MPV 10.5 8.8 - 12.0 fL Protime-INR baseline Collection Time: 10/10/16 2:22 AM Result 1 Ref Range Protime 12.5 11.8 - 14.0 sec INR 0.9 0.9 - 1.1 Heparin level - STAT Anti-Xa level q6h x 2 Collection Time: 10/10/16 2:22 AM Result 1 Ref Range Heparin assay UFH (Anti-Xa) <0.10 (L) 0.30 - 0.70 IU/mL Activated partial thromboplastin time Collection Time: 10/10/16 2:22 AM Result 1 Ref Range aPTT 28 26 - 36 sec EKG: EKG and environmental monitoring specialist were personally reviewed: EKG: Atrial fibrillation with a rapid ventricular response and nonspecific ST changes, no old EKGs are available for comparison. ACCOUNT RELATIONSHIP MANAGER: [employer] Strip Interpretation Interpreted by emergency department physician Monitor strip interpreted for greater than 10 seconds Rhythm: atrial fibrillation - rapid Rate: 130-140 Ectopy: none ST Segments: Nonspecific DIAGNOSTIC IMAGING: Echocardiogram 2d Complete Result Date: 10/10/2016 Patient: KYLEE LUNDBERG [facility] Rec#: [id number] Date: 10/10/2016 Age: 76y Height: 167.64 cm / 66.0 in Weight: 72.58 kg / 160.0 lbs Sex: F BSA: 1.82 Type: Inpatient Loc: patient room Referring: ZACHARY WALLACE Reading: Ajith Hart M.D Poke In: Monet Jain (Student) Poke In: Kaila Sage NASEEM Transth oracic Echocardiogram Indication: Atrial Fibrillation BP: 115/70 HR: 70 Rhythm: Sinus Findings Technical Comments: Color flow images and Doppler velocities were obtained to assess for valvular insufficiency, stenosis and/or intracardiac shunts. The study quality is fair.Left Ventricle: The left ventricular chamber size is normal. The left ventricular wall thickness is normal. There is normal left ventricular systolic function. The ejection fraction is calculated to be64% using the Treadwell's method. There is normal diastolic function of the left ventricle. Left Atrium: Left atrial size is normal. Right Ventricle: The right ventricular cavity size is normal. The right ventricular global systolic function is low normal. Right Atrium: The right atrium is mildly enlarged. Aortic Valve: The aortic valve is trileaflet. Color Flow Doppler and Doppler velocities: there is no evidence of aortic insufficiency. Mitral Valve: Mild mitral leaflet calcification is visualized. There is mitral annular calcification. Trace mitral regurgitation is recorded. Tricuspid Valve: Thetricuspid valve leaflets are normal. Mild tricuspid regurgitation is recorded. Pulmonic Valve: The pulmonic valve appears normal. Color Flow Doppler and Doppler velocities: there is no evidence of pulmonic regurgitation. Pericardium: The pericardium appears normal. Aorta: The aorta appears normal. Pulmonary Artery Hypertension: There is evidence of borderline pulmonary hypertension. Venous: The inferior vena cava appears normal. There is a greater than 50% respiratory change in the inferior vena cava dimension. Summary: There is no previous study for comparison. An echocardiogram is recommended in 2 years to follow-up. Conclusions: There is normal left ventricular systolic and diastolic function. The LV ejection fraction is calculated to be 64% using the Treadwell's method. The right atrium is mildly enlarged. Mild tricuspid regurgitation is recorded. Measurements Chambers MM Name Value Normal Range Ao root diameter (MM) 3.4 cm (2 - 3.7) Chambers 2D Name Value Normal Range RVIDd (AP) 2D2.97 cm (1.9 - 3.5) RVIDd (2D) index 1.63 cm/m2 -IVSd (2D) 0.73 cm - LVPWd (2D) 0.81 cm- IVS:LVPW ratio (2D) 0.9 ratio - LVIDd (2D) 4.31 cm - LVIDs (2D) 2.93 cm - LVIDd (2D) index 2.37 cm/m2 - LVIDs (2D) index 1.61 cm/m2 - LV FS (2D) 32 % - LV FS (Teich 2D) 32 % - LV FS (cube 2D) 32 % - EF Teichholz (2D) 60 % - Ao root diameter (2D) 3.4 cm - LA dimension (AP) 2D 3.2 cm - LA:Ao ratio (2D) 0.94 ratio - Ao root diam (2D) index 1.87 cm/m2 - LA dimen (2D) index 1.76 cm/m2 - RA AREA 4CH 19.7 cm2 - Volumes/Mass Name Value Normal Range LA Area 4 CH 13.8 cm2 - LAESV SP 4CH (MOD) 31.2 ml - LA ESV SP 2CH (MOD) 44.2 ml - LA ESV BP (MOD) 37.5 ml - LA ESV BP (MOD)index 20.6 ml/m2 (16 - 34) LV EDV SP 4CH (MOD) 54.8 ml - LV ESV SP 4CH (MOD) 19.5 ml - EF SP 4CH (MOD) 64 % - LV EDV SP 2CH (MOD) 63.7 ml - LV ESV SP 2CH (MOD) 23.5 ml - EF SP 2CH (MOD) 63 % - LV EDV BP 61.3 ml - LV ESV BP 21.8 ml - BP EF (MOD) 64 % - LV EDV BP index 33.68 ml/m2 - LV ESV BP index 11.98 ml/m2 - LV mass (2D) 100.98 g (80 - 200) LV mass (2D) index 55.48 g/m2 - Diastolic/Systolic Function Name Value Normal Range MV E-wave Vmax 0.74 m/sec - MV deceleration time 208 msec - MV A-wave Vmax 0.75 m/sec - MV A-wave duration 204 msec - MV E:A ratio 0.99 ratio - P. vein A-wave duration 113 msec - MV:P.vein A-wave duratio1.81 ratio - delta D -91 msec - LV E:e' septal ratio 9 ratio - LV E:e' lateral ratio 8.7 ratio - Aortic Valve Name Value Normal Range AV Vmax 0.94 m/sec - AV VTI 23.2 cm - AV peak gradient 3.56 mmHg - AV mean gradient 3 mmHg (Less Than 20)LVOT diameter 2 cm - LVOT Vmax 0.88 m/sec- LVOT VTI 18.2 cm - LVOT pk grad 3 mmHg - LVOT mean grad 2 mmHg - DOI (VTI) 0.78 ratio - DOI (Vmax) 0.93 ratio - SV LVOT 57.15 ml - CO LVOT 4 l/min - Cardiac index 2.2 l/min/m2 - AALIYAH (cont Vmax) 2.93 cm2 - AALIYAH (cont Vmax) index 1.61 cm2/m2 - AALIYAH (continuity VTI) 2.46 cm2 - AALIYAH (cont VTI) index 1.35 cm2/m2 - Ascending Ao 3.3 cm - Aortic arch 2.4 cm - Mitral Valve Name Value Normal Range MV Vmax 0.72 m/sec - MV VTI 24.1 cm - MVpeak gradient 2.1 mmHg - MV mean gradient 1 mmHg - MVA (continuity VTI) 2.37 cm2 - Tricuspid ValveName Value Normal Range TR Vmax 2.69 m/sec (Less Than 2.4) TR peak gradient 28.97 mmHg - RAP 3 mmHg (Less Than 3) RVSP 31.97 mmHg (Less Than 35) IVC diameter 2.05 cm - Pulmonic Valve/Qp:Qs Name Value Normal Range PV Vmax 0.68 m/sec - PV VTI 15.5 cm - PV peak gradient 1.84 mmHg - PV mean gradient 1 mmHg - Thank you for the courtesy of this referral. Xr Chest 2 Views Result Date: 10/10/2016 Examination: 10/10/2016 12:58 AM CHEST X-RAY HISTORY: Chest pain Comparison: No relevant comparisonsare available at the time of dictation. TECHNIQUE: Two views FINDINGS: Parenchyma/Pleura: There is no evidence for pneumothorax, pleural effusion or airspace opacity. Linear stranding is seen in thebilateral costophrenic sulci. Emphysematous changes are present. Mild diaphragmatic flattening is present. Heart and vasculature: Normal. Mediastinum/Aorta: Normal. Abdomen: Normal. Osseous: No acute process. Bilateral linear stranding is seen in the bases likely represent scarring with differential of chronic atelectasis. 2. Emphysematous changes are present with mild hyperinflation. Reading Workstation ID: [id number] MEDICAL DECISION MAKING AND CLINICAL COURSE: The patient was seen and evaluated by myself. To the extent it was available, I obtained additional history and data from family, caretakers, and paramedics. I also reviewed nursing notes and flow sheets. Prior EMR records were reviewed in [facility] as available and clinically relevant, as well as records from outside sources when readily available. BRITTANI alerts were reviewed, if/when available. Patient arrives with atrial fibrillation with a rapid ventricular response. Differential diagnosis includes acute ND, acute coronary syndrome, metabolic disorder, thyroid disorder, other pathology. The patient has done well with beta blockers in the past. She was placed on an as low drip. The patient failed to convert. She did receive some fluid boluses. This was discussed with Dr. Hart who recommends anticoagulation, Eliquis, rate controlled, and did not feel the patient was an appropriate candidate for cardioversion. Patient was admitted to the hospitalist service. She did require 35 minutes critical care time for evaluation treatment of her cardiac arrhythmia getting control of heart rate Chads 2 score appears to be one for her age. She has no history of CHF. Her last echocardiogram was approximately 10 years ago. If her EF is significantly depressed this may be recalculated. There is no history of hypertension, diabetes, TIA or CVA. ED Diagnosis Final diagnosis Atrial fibrillation with rapid ventricular response (HCC) DISPOSITION: Admit [3] Signed: Denzel Morris MD 10/10/2016, 11:51 PM Denzel Morris MD 10/10/16 8100 Jaret Morris RN - 10/10/2016 12:05 AM PDTPt came to ER via EMS after patient was advised to come in for rapid HR. When EMS arrived she had doubled her PO metoprolol dose for the evening and pt's HR was 140-170. Pt was given an additional 6 mgof IV Metoprolol from EMS and her HR settled around 120, with a stable BP. Pt is asymptomatic. documented in this encounter Miscellaneous Notes Plan of Care - Luz Hartley RN - 10/11/2016 3:09 AM PDTProblem: PAIN Goal: Verbalizes/displays adequate comfort level or baseline comfort level Outcome: Progressing No complaints of pain during shift. Appears to be resting comfortably in bed. Problem: INFECTION Goal: Absence of infection during hospitalization Outcome: Progressing No signs of infection. VSS and afebrile. WBC 8.3 Problem: SAFETY - FALL Goal: Free from fall and/or injury Outcome: Progressing No falls during shift. Pt's gait is steady while up to the bathroom. Problem: DISCHARGE PLANNING Goal: Discharge to home or other facility with appropriate resources Outcome: Progressing Pending hospital stay. Pt hopes to d/c home soon. Comments: Pt stated that she would like to discuss more information with MD in the morning about her A-fib andthe Heparin treatment she is receiving. Card Decorator educated her on why she is receiving this medication.Pt stated that she understands why she is receiving. Luz Rosado RN - 10/10/2016 10:19 PM PDTPharmacist Prabhakar called, Anti- Xa = 0.47 therapeutic. No new orders. Luz Hartley lan of Care - Sasha Suarez RN - 10/10/2016 5:28 PM PDTProblem: PAIN Goal: Verbalizes/displays adequate comfort level or baseline comfort level Outcome: Progressing No c/o pain noted during shift. Problem: INFECTION Goal: Absence of infection during hospitalization Outcome: Progressing No s/s of infection noted. Problem: SAFETY - FALL Goal: Free from fall and/or injury Outcome: Progressing No falls noted during shift. Ambulates to bathroom with steady and even gait. Problem: DISCHARGE PLANNING Goal: Discharge to home or other facility with appropriate resources Outcome: Progressing Pending hospital course. Comments: Calm and cooperative with staff. Would like to know how long she is to stay in the hospital. Has multiple questions regarding a fib. RN was able to educate her on some things but would appreciate more education from MD. Thank you. documented in this encounter Plan of Treatment Not on filedocumented as of this encounter Procedures Procedure Name Priority Date/Time Associated Comments Diagnosis SCAN DOC: CARDIAC 10/13/2016 PROCEDURE CBC AND DIFFERENTIAL Early AM 10/11/2016 7:20 Res ults for this AM PDT procedure are i n the results section. BASIC METABOLIC PANEL Early AM 10/11/2016 7:20 Re sults for this AM PDT procedure are i n the results section. UNFRACTIONATED HEPARIN Timed 10/10/2016 9:44 R esults for this ANTI-10A LEVEL PM PDT procedure are in the results section. UNFRACTIONATED HEPARIN Timed 10/10/2016 3:41 R esults for this ANTI-10A LEVEL PM PDT procedure are in the results section. TROPONIN I Timed 10/10/2016 11:23 Results for this AM PDT procedure are i n the results section. ECHOCARDIOGRAM 2D Routine 10/10/2016 10:40 Result s for this COMPLETE AM PDT procedure are i n the results section. TROPONIN I Timed 10/10/2016 8:14 Results for this AM PDT procedure are i n the results section. UNFRACTIONATED HEPARIN Timed 10/10/2016 8:14 R esults for this ANTI-10A LEVEL AM PDT procedure are in the results section. EKG STAT 10/10/2016 6:05 Results for this AM PDT procedure are i n the results section. ACTIVATED PARTIAL STAT 10/10/2016 2:22 Result s for this THROMBOPLASTIN TIME AM PDT procedur e are in the results section. PROTIME-INR STAT 10/10/2016 2:22 Results for this AM PDT procedure are i n the results section. UNFRACTIONATED HEPARIN STAT 10/10/2016 2:22 R esults for this ANTI-10A LEVEL AM PDT procedure are in the results section. CBC, NO DIFF (HEMOGRAM) Timed 10/10/2016 2:22 Results for this AM PDT procedure are i n the results section. XR CHEST 2 VIEWS JAISON 10/10/2016 12:40 Results for this AM PDT procedure are i n the results section. POC TROPONIN I (BEAKER) Routine 10/10/2016 12:31 Results for this AM PDT procedure are i n the results section. ECG 15 LEAD STAT 10/10/2016 12:26 Results for this AM PDT procedure are i n the results section. TSH WITH REFLEX TO FT4 STAT 10/10/2016 12:25 R esults for this IF IND AM PDT procedure are i n the results section. CBC AND DIFFERENTIAL STAT 10/10/2016 12:25 Res ults for this AM PDT procedure are i n the results section. COMPREHENSIVE METABOLIC STAT 10/10/2016 12:25 Results for this PANEL AM PDT procedure are i n the results section. OXYGEN THERAPY Routine 10/10/2016 12:19 AM PDT documented in this encounter Results CBC and differential (10/11/2016 7:20 AM PDT) Pathologist Sig nature WBC 7.3 3.8 - 11.0 [facility] CLINICAL LAB RBC 4.78 3.70 - 5.10 [facility] CLINICAL LAB HEMOGLOBIN 14.0 11.3 - 15.5 [facility] gdL [facility] CLINICAL LAB Hematocrit 43 34 - 46 % [facility] CLINICAL LAB MCV 89 80 - 100 fL [facility] CLINICAL LAB MCH 29.3 27.0 - 34.0 pg [facility] CLINICAL LAB MCHC 32.9 32.0 - 35.5 [facility] g/dL [facility] CLINICAL LAB RDW 14.1 11.0 - 15.5 % [facility] CLINICAL LAB Platelets 248 150 - 400 [facility] CLINICAL LAB MPV 11.2 8.8 - 12.0 fL [facility] CLINICAL LAB Nucleated RBC 0 0 - 0 % [facility] CLINICAL LAB nRBC# 0.00 10*3/uL [facility] CLINICAL LAB Neutrophils % 39 38 - 70 % [facility] CLINICAL LAB Lymphocytes % 52 (H) 15 - 48 % [facility] CLINICAL LAB Monocytes % 7 0 - 12 % [facility] CLINICAL LAB Eosinophils % 2 0 - 7 % [facility] CLINICAL LAB Basophils % 0 0 - 2 % [facility] CLINICAL LAB Neut# 2.8 1.9 - 7.4 [facility] CLINICAL LAB Lymph# 3.8 1.0 - 3.9 [facility] CLINICAL LAB Monos# 0.5 0.0 - 0.8 [facility] CLINICAL LAB Eos# 0.2 0.0 - 0.5 [facility] CLINICAL LAB Baso# 0.0 0.0 - 0.1 K/mcL [facility] CLINICAL LAB Immature Granulocytes % 0 % [facility] CLINICAL LAB Immature Granulocytes 0.0 K/mcL [facility] CLINICAL LAB Specimen Blood Performing Organization Address City/[facility]/Zipcode Phone Number [facility] [address] [place] [address] CLINICAL LABORATORY [place] [address] [address]a [address], [address] [place] [phone] [place] [address] CENTER CLINICAL LAB Fl Basic metabolic panel (10/11/2016 7:20 AM PDT) Sodium 143 135 - 145 [facility] mmol/L [facility] CLINICAL LAB Potassium 3.8 3.5 - 5.1 [facility] mmolL [facility] CLINICAL LAB Chloride 109 (H) 98 - 107 [facility] mmolL [facility] CLINICAL LAB CO2,Total 24 22 - 30 [facility] mmol/L [facility] CLINICAL LAB Anion Gap 10 5 - 16 mmol/L [facility] CLINICAL LAB Osmolality, 285 275 - 295 [facility] Calculated mOsm/K [facility] CLINICAL LAB Glucose 86 74 - 106 [facility] mg/dL [facility] CLINICAL LAB Calcium 8.3 (L) 8.4 - 10.4 [facility] mg/dL [facility] CLINICAL LAB BUN 14 7 - 17 mg/dL [facility] CLINICAL LAB Creatinine 0.65 0.52 - 1.04 [facility] mg/dL [facility] CLINICAL LAB BUN/Creatinine 22 7 - 24 [facility] CLINICAL LAB GFR if >90 >=60 [facility] Salvadorean mL/min/1.73m2 [facility] CLINICAL LAB GFR if not 89 >=60 [facility] Salvadorean Comment: mL/min/1.73m2 MEDICAL CENTER <60 mL/min/1.73m2 ??Chronic Kidney Disease CLINICAL LAB <15 mL/min/1.73m2 ??Kidney failure MDRD formula used for GFR calculation. ?? Not intended for drug dosing decisions. Specimen Blood Performing Organization Address City/[facility]/Zipcode Phone Number [facility] [address] [place] [address] CL[address] [address] , [facility] [phone] CENTER CLINICAL LAB Fl Unfractionated heparin anti-10A level (10/10/2016 9:44 PM PDT) Pathologist Sig nature Heparin assay UFH 0.47 0.30 - 0.70 [facility] (Anti-Xa) IU/mL [facility] CLINICAL LAB Specimen Blood Performing Organization Address [facility] Phone Number [address] [address] CLINICAL LABORATORY [address] [address] , [facility] [phone] [place] CLINICAL LAB Fl Unfractionated heparin anti-10A level (10/10/2016 3:41 PM PDT) Pathologist Sig nature Heparin assay UFH 0.61 0.30 - 0.70 [facility] (Anti-Xa) IU/mL [facility] CLINICAL LAB Specimen Blood Performing Organization Address [facility] Number [address] [address] [phone] CLINICAL LABORATORY [address] [address] , [facility] [phone] [place] CLINICAL LAB Fl Troponin I (10/10/2016 11:23 AM PDT) Pathologist Sig nature Troponin I <0.012 <0.034 ng/mL [facility] CLINICAL LAB Specimen Blood Narrative Performed At <0.034 ng/mL ??Negative [facility] CLINICAL >0.034 ng/mL ??Consistent with Myocardial LAB injury Performing Organization Address [facility] Phone Number [address] [address] CLINICAL LABORATORY [address] [address] , [facility] [phone] CENTER CLINICAL LAB Fl Echocardiogram 2D Complete (10/10/2016 10:40 AM PDT) Specimen Narrative Performed At Patient: ?KYLEE LUNDBERG ?? [facility] Rec#: ? [id number] ? Date: ? 10/10/2016 ?Age: ?76y ?Height: ? 167.64 cm / 66.0 in Accession#: ?? [id number] ? Weight: ? 72.58 kg / 160.0 lbs Sex: ?F ? BSA : ?1.82 Type: ? Inpatient Loc: ?patient room Referring: ?ZACHARY WALLACE Reading: ?Ajith Hart M.D Poke In: ??Monet Jain (Student) Poke In: ??Kaila Sage RDCS __ Transthoracic Echocardiogram Indication: Atrial Fibrillation BP: ? 115/70 HR: ? 70 Rhythm: ? Sinus Findings ? Technical Comments: Color flow images and Doppler velocities were obtained to assess for valvular insufficiency, stenosis and/or intracardiac s hunts. The study quality is fair. ?? Left Ventricle: The left ventricular chamber size is normal. The left ventricular wall thickness is normal. There is normal left ventricular systolic function. The ejection fraction is calculated to b e 64% using the Treadwell's method. ??There is normal diastolic func tion of the left ventricle. Left Atrium: Left atrial size is normal. Right Ventricle: The right ventricular cavity size is nor mal. The right ventricular global systolic function is low normal. Right Atrium: The right atrium is mildly enlarged. ?? Aortic Valve: The aortic valve is trileaflet. Color Fl ow Doppler and Doppler velocities: there is no evidence of aort ic insufficiency. Mitral Valve: Mild mitral leaflet calcification is visualized. There is mitral annular calcification. Trace mitral regurgitatio n is recorded. Tricuspid Valve: The tricuspid valve leaflets are normal. ??Mild tricus pid regurgitation is recorded. Pulmonic Valve: The pulmonic valve appears normal. Color Flow Doppler and Doppler velocities: there is no evidence of pulm onic regurgitation. Pericardium: The pericardium appears normal. Aorta: The aorta appears normal. ?? Pulmonary Artery Hypertension: There is evidence of borderline pulmonar y hypertension. Venous: The inferior vena cava appears normal. T here is a greater than 50% respiratory change in the inferior vena cava dimension. Summary: There is no previous study for compariso n. An echocardiogram is recommended in 2 years to follow-up. Conclusions: There is normal left ventricular systolic and diastoli c function. The LV ejection fraction is calculated to be 64% using the Si mpson's method. The right atrium is mildly enlarged. Mild tricuspid regurgitation is recorded . Measurements Chambers MM Name ?Value ? No rmal Range ? Ao root diameter (MM) ?? 3.4 cm ?(2 - 3.7) ? Chambers 2D Name ?Value ? No rmal Range ? RVIDd (AP) 2D ? 2.97 cm ? (1.9 - 3 .5) ? RVIDd (2D) index ?1.63 cm/m2 ?- ? IVSd (2D) ? 0.73 cm ? - ? LVPWd (2D) ?0.81 cm ? - ? IVS:LVPW ratio (2D) ? 0.9 ratio ? - ? LVIDd (2D) ?4.31 cm ? - ? LVIDs (2D) ?2.93 cm ? - ? LVIDd (2D) index ?2.37 cm/m2 ?- ? LVIDs (2D) index ?1.61 cm/m2 ?- ? LV FS (2D) ?32 % ?- ? LV FS (Teich 2D) ?32 % ?- ? LV FS (cube 2D) ? 32 % ?- ? EF Teichholz (2D) ? 60 % ?- ? Ao root diameter (2D) ?? 3.4 cm ?- ? LA dimension (AP) 2D ?3.2 cm ?- ? LA:Ao ratio (2D) ?0.94 ratio ?- ? Ao root diam (2D) index 1.87 cm/m2 ?- ? LA dimen (2D) index ? 1.76 cm/m2 ?- ? RA AREA 4CH ? 19.7 cm2 ?- ? Volumes/Mass Name ?Value ? No rmal Range ? LA Area 4 CH ?13.8 cm2 ?- ? LA ESV SP 4CH (MOD) ? 31.2 ml ? - ? LA ESV SP 2CH (MOD) ? 44.2 ml ? - ? LA ESV BP (MOD) ? 37.5 ml ? - ? LA ESV BP (MOD) index ?? 20.6 ml/m2 ?(16 - 34) ? LV EDV SP 4CH (MOD) ? 54.8 ml ? - ? LV ESV SP 4CH (MOD) ? 19.5 ml ? - ? EF SP 4CH (MOD) ? 64 % ?- ? LV EDV SP 2CH (MOD) ? 63.7 ml ? - ? LV ESV SP 2CH (MOD) ? 23.5 ml ? - ? EF SP 2CH (MOD) ? 63 % ?- ? LV EDV BP ? 61.3 ml ? - ? LV ESV BP ? 21.8 ml ? - ? BP EF (MOD) ? 64 % ?- ? LV EDV BP index ? 33.68 ml/m2 ?? - ? LV ESV BP index ? 11.98 ml/m2 ?? - ? LV mass (2D) ?100.98 g ?(80 - 2 00) ? LV mass (2D) index ?55.48 g/m2 ?- ? Diastolic/Systolic Function Name ?Value ? No rmal Range ? MV E-wave Vmax ?0.74 m/sec ?- ? MV deceleration time ?208 msec ?- ? MV A-wave Vmax ?0.75 m/sec ?- ? MV A-wave duration ?204 msec ?- ? MV E:A ratio ?0.99 ratio ?- ? P. vein A-wave duration 113 msec ?- ? MV:P.vein A-wave duratio1.81 ratio ?- ? delta D ? -91 msec ?- ? LV E:e' septal ratio ?9 ratio ? - ? LV E:e' lateral ratio ?? 8.7 ratio ? - ? Aortic Valve Name ?Value ? No rmal Range ? AV Vmax ? 0.94 m/sec ?- ? AV VTI ?23.2 cm ? - ? AV peak gradient ?3.56 mmHg ? - ? AV mean gradient ?3 mmHg ?(Less Th an 20) ? LVOT diameter ? 2 cm ?- ? LVOT Vmax ? 0.88 m/sec ?- ? LVOT VTI ?18.2 cm ? - ? LVOT pk grad ?3 mmHg ?- ? LVOT mean grad ?2 mmHg ?- ? DOI (VTI) ? 0.78 ratio ?- ? DOI (Vmax) ?0.93 ratio ?- ? SV LVOT ? 57.15 ml ?- ? CO LVOT ? 4 l/min ? - ? Cardiac index ? 2.2 l/min/m2 ??- ? AALIYAH (cont Vmax) ? 2.93 cm2 ?- ? AALIYAH (cont Vmax) index ?? 1.61 cm2/m2 ?? - ? AALIYAH (continuity VTI) ?2.46 cm2 ?- ? AALIYAH (cont VTI) index ?1.35 cm2/m2 ?? - ? Ascending Ao ?3.3 cm ?- ? Aortic arch ? 2.4 cm ?- ? Mitral Valve Name ?Value ? No rmal Range ? MV Vmax ? 0.72 m/sec ?- ? MV VTI ?24.1 cm ? - ? MV peak gradient ?2.1 mmHg ?- ? MV mean gradient ?1 mmHg ?- ? MVA (continuity VTI) ?2.37 cm2 ?- ? Tricuspid Valve Name ?Value ? No rmal Range ? TR Vmax ? 2.69 m/sec ?(Less Than 2.4) ? TR peak gradient ?28.97 mmHg ?- ? RAP ? 3 mmHg ?(L ess Than 3) ? RVSP ?31.97 mmHg ?(Les s Than 35) ? IVC diameter ?2.05 cm ? - ? Pulmonic Valve/Qp:Qs Name ?Value ? No rmal Range ? PV Vmax ? 0.68 m/sec ?- ? PV VTI ?15.5 cm ? - ? PV peak gradient ?1.84 mmHg ? - ? PV mean gradient ?1 mmHg ?- ? Thank you for the courtesy of this referral. Procedure Note Interface, Rad Results In - 10/10/2016 6:02 PM PDT Patient: KYLEE LUNDBERG [facility] Rec#: [id number] Date: 10/10/2016 Age: 76y Ralf ht: 167.64 cm / 66.0 in [place] ht: 72.58 kg / 160.0 lbs Sex: F BSA: 1.82 Type: Inpatient Loc: patient room Referring: ZACHARY WALLACE Reading: Ajith Lr Poke In: Monet Jain (Student) Poke In: Kaila Sage [facility] Transthoracic Echocardiogram Indication: Atrial Fibrillation BP: 115/70 HR: 70 Rhythm: Sinus Findings Technical Comments: Color flow images and Doppler velocities were obtained to assess for valvular insufficiency, stenosis and/or intracardiac shunts. The study quality is fair. Left Ventricle: The left ventricular chamber size is nor mal. The left ventricular wall thickness is normal. There is normal lef t ventricular systolic function. The ejection fraction is calculated to b e 64% using the Treadwell's method. There is normal diastolic funct ion of the left ventricle. Left Atrium: Left atrial size is normal. Right Ventricle: The right ventricular cavity size is nor mal. The right ventricular global systolic function is low normal. Right Atrium: The right atrium is mildly enlarged. Aortic Valve: The aortic valve is trileaflet. Color Fl ow Doppler and Doppler velocities: there is no evidence of aort ic insufficiency. Mitral Valve: Mild mitral leaflet calcification is vis ualized. There is mitral annular calcification. Trace mitral regurgitatio n is recorded. Tricuspid Valve: The tricuspid valve leaflets are normal. Mild tricuspid regurgitation is recorded. Pulmonic Valve: The pulmonic valve appears normal. Color Flow Doppler and Doppler velocities: there is no evidence of pulm onic regurgitation. Pericardium: The pericardium appears normal. Aorta: The aorta appears normal. Pulmonary Artery Hypertension: There is evidence of borderline pulmonar y hypertension. Venous: The inferior vena cava appears normal. T here is a greater than 50% respiratory change in the inferior vena cava dimension. Summary: There is no previous study for compariso n. An echocardiogram is recommended in 2 years to follow-up. Conclusions: There is normal left ventricular systoli c and diastolic function. The LV ejection fraction is calculated to be 64 % using the Treadwell's method. The right atrium is mildly enlarged. Mild tricuspid regurgitation is recorded . Measurements Chambers MM Name Value No rmal Range Ao root diameter (MM) 3.4 cm (2 - 3.7) Chambers 2D Name Value No rmal Range RVIDd (AP) 2D 2.97 cm (1 .9 - 3.5) RVIDd (2D) index 1.63 cm/m2 - IVSd (2D) 0.73 cm - LVPWd (2D) 0.81 cm - IVS:LVPW ratio (2D) 0.9 ratio - LVIDd (2D) 4.31 cm - LVIDs (2D) 2.93 cm - LVIDd (2D) index 2.37 cm/m2 - LVIDs (2D) index 1.61 cm/m2 - LV FS (2D) 32 % - LV FS (Teich 2D) 32 % - LV FS (cube 2D) 32 % - EF Teichholz (2D) 60 % - Ao root diameter (2D) 3.4 cm - LA dimension (AP) 2D 3.2 cm - LA:Ao ratio (2D) 0.94 ratio - Ao root diam (2D) index 1.87 cm/m2 - LA dimen (2D) index 1.76 cm/m2 - RA AREA 4CH 19.7 cm2 - Volumes/Mass Name Value No rmal Range LA Area 4 CH 13.8 cm2 - LA ESV SP 4CH (MOD) 31.2 ml - LA ESV SP 2CH (MOD) 44.2 ml - LA ESV BP (MOD) 37.5 ml - LA ESV BP (MOD) index 20.6 ml/m2 (1 6 - 34) LV EDV SP 4CH (MOD) 54.8 ml - LV ESV SP 4CH (MOD) 19.5 ml - EF SP 4CH (MOD) 64 % - LV EDV SP 2CH (MOD) 63.7 ml - LV ESV SP 2CH (MOD) 23.5 ml - EF SP 2CH (MOD) 63 % - LV EDV BP 61.3 ml - LV ESV BP 21.8 ml - BP EF (MOD) 64 % - LV EDV BP index 33.68 ml/m2 - LV ESV BP index 11.98 ml/m2 - LV mass (2D) 100.98 g (8 0 - 200) LV mass (2D) index 55.48 g/m2 - Diastolic/Systolic Function Name Value No rmal Range MV E-wave Vmax 0.74 m/sec - MV deceleration time 208 msec - MV A-wave Vmax 0.75 m/sec - MV A-wave duration 204 msec - MV E:A ratio 0.99 ratio - P. vein A-wave duration 113 msec - MV:P.vein A-wave duratio1.81 ratio - delta D -91 msec - LV E:e' septal ratio 9 ratio - LV E:e' lateral ratio 8.7 ratio - Aortic Valve Name Value No rmal Range AV Vmax 0.94 m/sec - AV VTI 23.2 cm - AV peak gradient 3.56 mmHg - AV mean gradient 3 mmHg (L ess Than 20) LVOT diameter 2 cm - LVOT Vmax 0.88 m/sec - LVOT VTI 18.2 cm - LVOT pk grad 3 mmHg - LVOT mean grad 2 mmHg - DOI (VTI) 0.78 ratio - DOI (Vmax) 0.93 ratio - SV LVOT 57.15 ml - CO LVOT 4 l/min - Cardiac index 2.2 l/min/m2 - AALIYAH (cont Vmax) 2.93 cm2 - AALIYAH (cont Vmax) index 1.61 cm2/m2 - AALIYAH (continuity VTI) 2.46 cm2 - AALIYAH (cont VTI) index 1.35 cm2/m2 - Ascending Ao 3.3 cm - Aortic arch 2.4 cm - Mitral Valve Name Value No rmal Range MV Vmax 0.72 m/sec - MV VTI 24.1 cm - MV peak gradient 2.1 mmHg - MV mean gradient 1 mmHg - MVA (continuity VTI) 2.37 cm2 - Tricuspid Valve Name Value No rmal Range TR Vmax 2.69 m/sec (L ess Than 2.4) TR peak gradient 28.97 mmHg - RAP 3 mmHg (L ess Than 3) RVSP 31.97 mmHg (L ess Than 35) IVC diameter 2.05 cm - Pulmonic Valve/Qp:Qs Name Value No rmal Range PV Vmax 0.68 m/sec - PV VTI 15.5 cm - PV peak gradient 1.84 mmHg - PV mean gradient 1 mmHg - Thank you for the courtesy of this refer ral. Performing Organization Address City/[facility] Phone Number [facility] Trop[facility] I (10/10/2016 8:14 AM PDT) Pathologist Sig nature Troponin I <0.012 <0.034 ng/mL [facility] CLINICAL LAB Specimen Blood Narrative Performed At <0.034 ng/mL ??Negative [facility] CLINICAL >0.034 ng/mL ??Consistent with Myocardial LAB injury Performing Organization Address City/[facility] Hospitalcode Phone Number [facility] [address] [place] [address] CLINICAL LABORATORY [facility] [address], [address] [place] [address] [facility] [phone] [place] CLINICAL LAB Fl Unfractionated heparin anti-10A level (10/10/2016 8:14 AM PDT) Pathologist Sig nature Heparin assay UFH 0.73 (H) 0.30 - 0.70 [facility] (Anti-Xa) IU/mL [facility] CLINICAL LAB Specimen Blood Performing Organization Address [facility] Phone Number [facility] [address] [place] [address] [phone] CLINICAL LABORATORY [place] [address] [address] Lux, [address] [place] [id number] [place] [address] CENTER CLINICAL LAB Fl ECG 12 Lead (10/10/2016 6:05 AM PDT) MUSE VENTRICULAR RATE 68 BPM MUSE MUSE ATRIAL RATE 68 BPM MUSE MUSE P-R INTERVAL 148 ms MUSE MUSE QRS DURATION 78 ms MUSE MUSE Q-T INTERVAL 404 ms MUSE MUSE QTC CALCULATION 429 ms MUSE MUSE CALCULATED P 69 degrees MUSE MUSE CALCULATED R 81 degrees MUSE MUSE CALCULATED T 76 degrees MUSE [place] Diagnosis Normal sinus rhythm MUSE Normal ECG When compared with ECG of 10-OCT-2016 00:26, Sinus rhythm has replaced Atrial fibrillation Vent. rate has decreased BY ??63 BPM Confirmed by Anshu Goel MD ([id number]) on 10/10/2016 8:1 2:35 PM Specimen Performing Organization Address [facility] Phone Number MUSE CBC, no diff (hemogram) (10/10/2016 2:22 AM PDT) Pathologist Sig rj WBC 8.3 3.8 - 11.0 K/mcL [facility] CLINICAL LAB RBC 4.84 3.70 - 5.10 M/mcL [facility] CLINICAL LAB HEMOGLOBIN 14.4 11.3 - 15.5 g/dL [facility] CLINICAL LAB Hematocrit 43 34 - 46 % [facility] CLINICAL LAB MCV 88 80 - 100 fL [facility] CLINICAL LAB MCH 29.8 27.0 - 34.0 pg [facility] CLINICAL LAB MCHC 33.6 32.0 - 35.5 g/dL [facility] CLINICAL LAB RDW 14.0 11.0 - 15.5 % [facility] CLINICAL LAB Platelets 245 150 - 400 K/mcL [facility] CLINICAL LAB MPV 10.5 8.8 - 12.0 fL [facility] CLINICAL LAB Specimen Blood Performing Organization Address [facility] Phone Number [address] [address] CLINICAL LABORATORY [address] [address] [facility] [phone] [place] CLINICAL [facility] Fl Activated partial thromboplastin time (10/10/2016 2:22 AM PDT) Pathologist Sig nature aPTT 28 26 - 36 sec [facility] CLINICAL LAB Specimen Blood Performing Organization Address [facility] Number [address] [address] CLINICAL LABORATORY [address] [address] [facility] [phone] [place] [facility] Fl Heparin level - STAT Anti-Xa level q6h x 2 (10/10/2016 2:22 AM PDT) Pathologist Sig nature Heparin assay UFH <0.10 (L) 0.30 - 0.70 [facility] (Anti-Xa) IU/mL [facility] CLINICAL LAB Specimen Blood Performing Organization Address [facility] Phone Number [address] [address] CLINICAL LABORATORY [address] [address] [facility] [phone] [place] [facility] Fl Protime-INR baseline (10/10/2016 2:22 AM PDT) Protime 12.5 11.8 - 14.0 [facility] CLINICAL LAB INR 0.9 0.9 - 1.1 [facility] Comment: MEDICAL CENTER RECOMMENDED THERAPEUTIC RANGE FOR ORAL ANTICOAGU LANT THERAPY INR: CLINICAL LAB ?? Venous Thrombosis, Pulmonary Embolism ?2 .0 - 3.0 ?? Atrial Fibrillation ?2.0 - 3.0 ?? Myocardial Infarction ?2.0 - 3.0 ?? Recurrent Systemic Embolism ?2.0 - 3.0 ?? Mechanical Prosthetic Heart Valves ? 2.5 - 3.5 Specimen Blood Performing Organization Address City/State/Zipcode Phone Number [facility] [address] [place] [address] CLINICAL LABORATORY [facility] [address] [facility], [address] [place] [address] , [facility] [phone] CENTER CLINICAL LAB Fl XR Chest 2 Views (10/10/2016 12:40 AM PDT) Specimen Impressions Performed At Bilateral linear stranding is seen in the bases likely represent [facility] scarring with differential of chronic at electasis. 2. Emphysematous changes are present wit h mild hyperinflation. Reading Workstation ID: [id number] Narrative Performed At Examination: ??10/10/2016 12:58 AM [facility] CHEST X-RAY HISTORY: Chest pain Comparison: ??No relevant comparisons are available at the time of dictation. TECHNIQUE: ??Two views FINDINGS: ?? Parenchyma/Pleura: ??There is no evidence for pneumoth orax, pleural effusion or airspace opacity. Linear stranding is seen in the bilateral costophrenic sulci. Emphysematous change s are present. ??Mild diaphragmatic flattening is present. Heart and vasculature: ??Normal. Mediastinum/Aorta: ??Normal. Abdomen: ??Normal. Osseous: ??No acute process. Procedure Note Interface, Rad Results In - 10/10/2016 1:00 AM PDT Examination: 10/10/2016 12:58 AM CHEST X-RAY HISTORY: Chest pain Comparison: No relevant comparisons are available at the time of dictation. TECHNIQUE: Two views FINDINGS: Parenchyma/Pleura: There is no evidence for pneumothorax, pleural effusion or airspace opacity. Linear stranding is seen in the bilateral costophrenic sulci. Emphysematous changes are present. Mild diaphragmatic flattening is present. Heart and vasculature: Normal. Mediastinum/Aorta: Normal. Abdomen: Normal. Osseous: No acute process. IMPRESSION: Bilateral linear stranding is seen in th e bases likely represent scarring with differential of chronic atelectasis. 2. Emphysematous changes are present wit h mild hyperinflation. Reading Workstation ID: [id number] Performing Organization Address [facility] Phone Number [facility] Troponin I, POC (10/10/2016 12:31 AM PDT) Pathologist Sig nature Troponin I 0.00 0 - 0.08 ng/mL [facility] POCT Specimen Blood Narrative Performed At Troponin I reference ranges, point-of-ca re: [facility] PO CT ??Normal = < 0.05 ng/mL ??Mildly elevated indicating increased risk of Myocardial ??event: 0.05 to 0.6 ng/mL ?Indicated Myocardial Infarction = > 0.6 ng/mL Performing Organization Address [facility] Phone Number [place] [phone] [place] [address] [facility] POCT ECG 15 lead (10/10/2016 12:26 AM PDT) MUSE VENTRICULAR 131 BPM MUSE RATE MUSE ATRIAL RATE 174 BPM MUSE MUSE QRS DURATION 70 ms MUSE MUSE Q-T INTERVAL 306 ms MUSE MUSE QTC CALCULATION 451 ms MUSE MUSE CALCULATED R 75 degrees MUSE MUSE CALCULATED T 62 degrees MUSE [place] Diagnosis Poor data quality, interpretation may be adve rsely affected MUSE Atrial fibrillation with rapid ventricular response Nonspecific ST abnormality Abnormal ECG No previous ECGs available Confirmed by Anshu Goel MD ([id number]) on 10/10/2016 7:5 8:48 PM Specimen Performing Organization Address [facility] Phone Number MUSE TSH with reflex to FT4, if indicated (10/10/2016 12:25 AM PDT) Pathologist Sig nature TSH 3.744 0.470 - 4.680 uIU/mL [facility] CLINICAL LAB Specimen Blood Performing Organization Address City/State/Zipcode Phone Number [facility] [address] [place] [address] [phone] CLINICAL LABORATORY [facility] [address], [place] [address] , [facility] [phone] [facility]ENTER CLINICAL LAB Fl Comprehensive metabolic panel (10/10/2016 12:25 AM PDT) Sodium 143 135 - 145 [facility] mmol/L [facility] CLINICAL LAB Potassium 3.6 3.5 - 5.1 [facility] mmol/L [facility] CLINICAL LAB Chloride 105 98 - 107 mmol/L [facility] CLINICAL LAB CO2,Total 24 22 - 30 mmol/L [facility] CLINICAL LAB Anion Gap 14 5 - 16 mmol/L [facility] CLINICAL LAB Glucose 128 (H) 74 - 106 mg/dL [facility] CLINICAL LAB Calcium 9.0 8.4 - 10.4 [facility] mg/dL [facility] CLINICAL LAB BUN 17 7 - 17 mg/dL [facility] CLINICAL LAB Creatinine 0.69 0.52 - 1.04 [facility] mg/dL [facility] CLINICAL LAB BUN/Creatinine 25 (H) 7 - 24 [facility] CLINICAL LAB GFR if >90 >=60 [facility] [place] mL/min/1.73m2 [facility] CLINICAL LAB GFR if not 83 >=60 [facility] [place] Comment: mL/min/1.73m2 [facility] CENTER <60 mL/min/1.73m2 ??Chronic Kidney Disease CLINICAL LAB <15 mL/min/1.73m2 ??Kidney failure MDRD formula used for GFR calculation. ?? Not intended for drug dosing decisions. Osmolality, 288 275 - 295 [facility] Calculated mOsm/K [facility] CLINICAL LAB Protein,Total 6.7 6.3 - 8.2 g/dL [facility] CLINICAL LAB Albumin 4.1 3.5 - 5.0 g/dL [facility] CLINICAL LAB Globulin 2.6 1.8 - 3.5 g/dL [facility] CLINICAL LAB A/G Ratio 1.6 (No normals [facility] CLINICAL LAB Bilirubin,Total 0.4 0.2 - 1.3 mg/dL [facility] CLINICAL LAB Alkaline 66 38 - 126 IU/L [facility] CLINICAL LAB ALT (SGPT) 37 9 - 52 IU/L [facility] CLINICAL LAB AST (SGOT) 30 14 - 36 U/L [facility] CLINICAL LAB Specimen Blood Performing Organization Address City/State/Zipcode Phone Number [place] [address] [place] [address] [phone] CLINICAL LABORATORY [facility] [address], [address] [place] [address] , [facility] [phone] [place] CLINICAL LAB Fl CBC and differential (10/10/2016 12:25 AM PDT) Pathologist Sig nature WBC 7.5 3.8 - 11.0 [facility] CLINICAL LAB RBC 4.94 3.70 - 5.10 [facility] CLINICAL LAB HEMOGLOBIN 14.5 11.3 - 15.5 g/dL [facility] CLINICAL LAB Hematocrit 43 34 - 46 % [facility] CLINICAL LAB MCV 88 80 - 100 fL [facility] CLINICAL LAB MCH 29.4 27.0 - 34.0 pg [facility] CLINICAL LAB MCHC 33.4 32.0 - 35.5 g/dL [facility] CLINICAL LAB RDW 13.8 11.0 - 15.5 % [facility] CLINICAL LAB Platelets 250 150 - 400 [facility] CLINICAL LAB MPV 10.6 8.8 - 12.0 fL [facility] CLINICAL LAB Nucleated RBC 0 0 - 0 % [facility] CLINICAL LAB nRBC# 0.00 10*3/uL [facility] CLINICAL LAB Neutrophils % 44 38 - 70 % [facility] CLINICAL LAB Lymphocytes % 46 15 - 48 % [facility] CLINICAL LAB Monocytes % 7 0 - 12 % [facility] CLINICAL LAB Eosinophils % 2 0 - 7 % [facility] CLINICAL LAB Basophils % 0 0 - 2 % [facility] CLINICAL LAB Neut# 3.3 1.9 - 7.4 /[facility] CLINICAL LAB Lymph# 3.4 1.0 - 3.9 [facility] CLINICAL LAB Monos# 0.5 0.0 - 0.8 [facility] CLINICAL LAB Eos# 0.2 0.0 - 0.5 [facility] CLINICAL LAB Baso# 0.0 0.0 - 0.1 [facility] CLINICAL LAB Immature Granulocytes % 0 % [facility] CLINICAL LAB Immature Granulocytes 0.0 /[facility] CLINICAL LAB Specimen Blood Performing Organization Address City/State/Zipcode Phone Number [address] [address] CLINICAL LABORATORY [address], [address] [place] [address] [place] CLINICAL [facility] Fl documented in this encounter Visit Diagnoses Diagnosis Atrial fibrillation with rapid ventricul ar response (HCC) - Primary A-fib (HCC) Atrial fibrillation Asthma Unspecified asthma Atrial fibrillation (HCC) Atrial fibrillation documented in this encounter Administered Medications Inactive Administered Medications - up to 3 most recent administrations Medication Order MAR Action Action Date Dose Rate Site esmolol (BREVIBLOC) New Bag 10/10/2016 12:54 AM 50 mcg/kg/min 21.8 mL/hr 2,500 mg in NS 250 mL PDT std infusion 50 mcg/kg/min ? 72.6 kg (21.78 mL/hr, rounded to 21.8 mL/hr), IntraVENous, at 21.8 mL/hr, Titrated, Starting Sun10/10/16 at 0030, Initiation Rate: 50 mcg/kg/min Titrate by: 25 mcg/kg/min every 10 minutes Titration endpoint: Heartrate less than 100 bpm Hold for: Heart Rate less than 60 bpm or Systolic BP less than 90 mm Hg or MAP less than 60 mm Hg Chart apical pulse - if LESS THAN 60 HOLD DRUG and call physician, JAISON heparin (porcine) Injection 1,000 Given 10/10/2016 3:14 AM PDT 4,000 Units Units/mL 4,000 Units, IntraVENous, Once (expires in 36 hours), e 10/10/16 at 0230, For 1 dose, Do not wait for baseline lab results., heparin infusion 50 units/mL New Bag 10/10/2016 10:33 PM PDT 9 00 Units/hr 18 mL/hr in 0.45% NaCl 900 Units/hr (18 mL/hr), IntraVENous, at 18 mL/hr, Continuous, Starting Sun10/10/16 at 0230, Initial maximum of 1,000 units/hour. Do not wait for baseline Lab results. EPIC ADMIN INSTRUCTIONS Disease State: ACS/Other Height: 168cm. Pt. Weight: 73kg Dosing Weight: 65kg Order an Anti-Xa (HEP UFH) level 6 hours after any dosage change, adjusting heparin infusion by the sliding scale below. When two (2) consecutive Anti-Xa (HEP UFH) levels are therapeutic, order the Anti-Xa level daily (at 1000), and re-adjust the heparin drip if needed. Anti Xa less than 0.1: Bolus dose: 4600 Units and increase rate from previous dose by: 200 Units/Hour Anti Xa 0.1 - 0.29: Bolus dose: 2300 Units and increase rate from previous dose by: 100 Units/Hour Anti Xa 0.3 - 0.7 (THERAPEUTIC RANGE): No Change Anti Xa 0.71 - 0.8: Decrease rate from previous dose by: 100 Units/Hour Anti Xa 0.81 - 1: Hold infusion for 30 minutes, then decrease rate from previous dose by: 200 Units/Hour Anti Xa greater than 1: Hold infusion for 60 minutes, then decrease rate from previous dose by: 200 Units/Hour, Clinical indications? Other, ACS, cardiac Rate/Dose Change (High Alert Med) 10/10/2016 4:14 PM PDT 900 Units /hr 18 mL/hr Rate/Dose Change (High Alert Med) 10/10/2016 9:39 AM PDT 900 Units /hr 18 mL/hr heparin per pharmacy protocol STAT, See admin instructions, Starting Sun10/10/16 at 0 200, Until Sun10/11/16 at 1404, Pharmacy to order Heparin Bolus and Drip for Pat ient. Pharmacy will also generate Dosing Worksheet, which is viewable in the [employer], metoprolol tartrate (LOPRESSOR) tablet Given 10/11/2016 9:59 AM PDT 12.5 mg 12.5 mg, Oral, 2 times daily, First dose on Sun10/10/16 at 0900, hold for sBP less than 100 or HR less than 60, Given 10/10/2016 9:16 PM PDT 12.5 mg Given 10/10/2016 10:09 AM PDT 12.5 mg sodium chloride 0.9% (NORMAL New Bag 10/10/2016 12:48 AM PDT 500 m L 500 mL/hr SALINE) bolus 500 mL 500 mL Once (expires in 36 hours), IntraVENous, Administer over 1 Hours, Sun10/10/16 at 0030, For 1 dose sodium chloride 0.9% (NORMAL New Bag 10/10/2016 1:58 AM PDT 500 m L 500 mL/hr SALINE) bolus 500 mL 500 mL Once (expires in 36 hours), IntraVENous, Administer over 1 Hours, Sun10/10/16 at 0145, For 1 dose documented in this encounter
--- OUTSIDE RECORDS SUMMARY | 2020-09-04 08:40 | XMS_ITS | Encounter Summary ---
:1940 Author Organization [facility] Address [address] [place] [address] Care Team Providers Name Role Phone Pcp Primary Care Provider Unavailable Reason for Visit Reason Onset Date Comments Appointment 08/29/2016 Encounter Details Date Type Department Care Team Description 08/29/2016 Telephone [facility] Foot and Ankle Jean Pierre Huerta, Appointment [place] [address] [place] [address] [address] [place] [address] [phone] [place] [phone] Social History Tobacco Use Types Packs/Day Years Used Date Never Assessed Sex Assigned at Date Recorded Not on file documented as of this encounter Miscellaneous Notes Telephone Encounter - Klarissa Garcia PSS/PSJerrod - 08/30/2016 8:11 AM PDT Spoke with patient and notify her the cost estimate. Per patient she has a recent xray that she can bring to her appointment. New Patient Visit Facility fee - $248.00 Pro fee - $198.00 Xray Facility fee - $414.00 Pro Fee - $42.00 Total: $902.00 elephone Encounter - Klarissa Garcia PSS/PSJerrod - 08/30/2016 7:35 AM PDT PSS will call patient after 8am for cost estimate elephone Encounter - Werner Agee, [facility] Rep - 08/29/2016 4:20 PM PDT (TEXTING IS AN OPTION FOR [facility] CLINICS ONLY) Is this a [facility] clinic? No RETURN CALL: OK to leave detailed message with anyone that answers SUBJECT: General Message REASON FOR REQUEST: cost estimate MESSAGE: please call the patient for the cost estimate for her appointment with Dr Huerta documented in this encounter Plan of Treatment Not on filedocumented as of this encounter Visit Diagnoses Not on filedocumented in this encounter
--- OUTSIDE RECORDS SUMMARY | 2020-09-04 08:40 | XMS_ITS | Encounter Summary ---
:1940 Author Organization [facility] [place] [address] Care Team Providers Name Role Phone Nelly Simmons MD Primary Care Provider Encounter Details Date Type Department Care Team Description 04/07/2020 Immunization [facility] Covid Employee, [facility] ter for [facility], immunization (Primary [address] PAC Dx) [place] [address] Social History Tobacco Use Types Packs/Day Years Used Date Never Smoker Alcohol Use Drinks/Week oz/Week Comments Yes 3 Glasses of wine 3.0 Sex Assigned at Date Recorded Not on file documented as of this encounter Functional Status Functional Status Response Date of Assessment Patient's Vision Adequate to Safely Complete Daily Yes 10/10/2016 Activities Patient's Judgement Adequate to Safely Complete Daily Yes 10/10/2016 Activities Cognitive Status Response Date of Assessment Patient's Memory Adequate to Safely Complete Daily Yes 10/10/2016 Activities documented as of this encounter Plan of Treatment Not on filedocumented as of this encounter Visit Diagnoses Diagnosis Encounter for immunization - Primary documented in this encounter
[2020-09-05 13:09] LABS: COVID-19 RT-PCR UVMMC Result Negative (Negative)
== END 2020-09-03 08:08 | disposition home or self-care (01) ==
LOC: LBN 08:07
PROVIDERS: Visit Provider Nurse Practitioner Family
DX: Z20.822 Contact with and (suspected) exposure to COVID-19 (principal)
CPT/HCPCS: U0003

== ENCOUNTER 2020-09-03 12:39 | Emergency (ER) | payer OTHER, SELFPAY ==
[2020-09-03 12:42] VITALS: BP 111/58; PULSE 68; RESP 18; TEMP 36.2; O2SAT 96
--- NOTE | 2020-09-03 12:50 | W.ED.GENAD ---
Discharge Plan Disposition Patient Disposition: HOME Condition: Stable Discharge Details Clinical Impression: Diarrhea, Blood in the urine, Weakness, Kidney calculi Primary Care Provider: Christelle,Local ED Provider: Ian Chicas Home Meds and New Rx's Prescriptions: Continued Spiriva with HandiHaler 18 mcg capsule, w/inhalation device 1 cap inhalation DAILY RF: 0 fluticasone propion-salmeterol [Advair Diskus] 250-50 mcg/dose blister with device 1 inh inhalation DAILY RF: 0 levalbuterol tartrate 45 mcg/actuation HFA aerosol inhaler 2 inh inhalation Q6H PRNRF: 0 metoprolol tartrate 25 MG tablet 12.5 mg PO BID RF: 0 cholecalciferol (vitamin D3) 1,000 UNITS tablet 1,000 units PO DAILY RF: 0 zolpidem 5 MG tablet 5 mg PO HS PRN PRNRF: 0 Eliquis 5 mg tablet 5 mg PO BID RF: 0 simethicone 125 mg Tablet 125 mg PO QPCHS RF: 0 ipratropium bromide 42 mcg (0.06 %) [place],Non-Aerosol 2 spray INTRANASAL TID RF: 0 Discharge Instructions Instructions: Kidney Stones (ED), Acute Diarrhea (ED), Hematuria (ED), Weakness (ED) Additional Instructions: Laboratory values do not reveal any obvious emergent process. You did have microscopic blood in your urine, this should be followed by your primary care provider or a urologist once you return home to [place]. You also have a stone within the pole of your kidney, it is 10 mm, and you will likely need to follow up with a urologist for a procedure to help the stone pass. Plenty of fluids to avoid dehydration. [id number] Imodium as directed for symptomatic control. Please watch for new or worsening symptoms and return to the ER for any concerns. Discharge Data Discharge Date/Time-TO BE ENTERED AT DEPARTURE: 09/03/20 16:21 Medical Decision Making 80-year-old female presents to the ER for complaint of generally not feeling well, diarrhea that began this morning, and hematuria per urgent care. Patient denies any fever, chest pain, current abdominal pain, vomiting, dysuria, jesús hematuria, flank pain, back pain, black tarry stools or bright red blood in her stools. Clinically she appears well, afebrile, blood pressure 111/58, pulse 68, O2 sat 96% on room air. Plan is to obtain IV access, give IV fluid, CBC, CMP, urinalysis, lipase, reassess. Laboratory values are unremarkable for obvious emergent process, white blood cell count 9.04, no evidence of anemia, electrolytes unremarkable. Creatinine 0.9 GFR greater than 60, LFTs unremarkable, lipase 72. Urinalysis does reveal 15 ketones, moderate blood, 3-5 red cells, 3-5 white cells, rare epithelial cells, many bacteria, culture is indicated. C. difficile and stool pathogens ordered but patient unable to give a stool sample. Patient denies any suprapubic discomfort, dysuria, urinalysis negative for nitrates, negative for leuk esterase, no clear UTI, culture pending. Patient does have moderate blood, 3-5 red cells, but no flank pain. Discussed findings with patient and family, discussed options. Given she is traveling, is not going to be home for at least a week, would like to proceed with CT of her abdomen and pelvis for further evaluation of symptoms. CT imaging revealed a 10 mm nonobstructing stone within the lower pole of the left kidney. Also reveals diverticulosis without evidence of diverticulitis. Mild amount of fluid in the colon and distal small bowel. Discussed CT findings with patient and family. Patient reports feeling improvement after the IV fluid. No abdominal pain nausea or vomiting at this time. We discussed her laboratory values and CT findings once again. She has still been unable to provide a stool sample. Discussed that she has a 10 mm stone within her left kidney, likely will not pass on its own, she will eventually need urology follow-up. Urology follow-up can also be beneficial for her hematuria. She was encouraged to return to the ER for new or worsening symptoms or any ER along her travel otherwise will follow up when she returns home to [place]. Patient has no additional questions or concerns and is comfortable discharge. She appears clinically stable. She was able to tolerate p.o. intake while here in the ER. Imaging Data Radiologic Study: Attestation: I personally reviewed and interpreted this imaging study as follows: Imaging: CT Scan Radiologist's impression: Exam(s) CT ABDOMEN PELVIS W EXAM: CT ABDOMEN PELVIS W CLINICAL HISTORY: Hematuria, on Eliquis, feels ill, diarrhea. TECHNIQUE: Imaging Protocol: Axial computed tomography images with coronal and sagittal reformatted images were created and reviewed CONTRAST MATERIAL: Intravenous: Omnipaque 350 Contrast volume:100ml Oral: no COMPARISON: CR CHEST 2 VIEWS PA,LAT from 03/11/2017 FINDINGS: ABDOMEN: Lung Bases: Dependent changes posterior costophrenic angles. Aorta tortuous at the thoraco abdominal junction. Small hiatal hernia. Liver: Normal density. No measurable mass. Gallbladder and biliary tract: No radiodense calculus or dilation. Pancreas: Normal density, no abnormal calcifications or inflammatory process. Spleen: Normal. Kidneys: Normal size, contour and axis. 10 by 5 millimeter stone lower pole left kidney. No masses seen. No perinephric collection. No hydronephrosis. Adrenal glands: No masses seen. Abdominal Aorta: Abdominal portion non-dilated. Tortuosity and mild atherosclerotic changes. PELVIS: Bladder: Symmetric distention, no gross wall thickening. Bowel: Diverticulosis descending and sigmoid colon. No evidence of diverticulitis. Mildly fluid-filled loops of small bowel. Some fluid in the ascending and transverse colon. No obstruction or bowel wall thickening. Peritoneal cavity: No ascites, collection or mesenteric inflammatory response. Bones: Mild T12 compression fracture, unchanged from 2013 chest x-ray. Degenerative disc changes. Degenerative changes are noted in both hips. A bone island is noted in the right superior acetabulum. Reproductive organs: Hysterectomy. Right-sided simple ovarian cyst. Lymph nodes: Unremarkable. Impression: 1. 10 millimeter nonobstructing stone lower pole left kidney. 2. Diverticulosis without evidence of diverticulitis. Mild amount of fluid in the colon and distal small bowel. No wall thickening or pneumatosis. The findings were called to Ian Chicas of the emergency department after completion of the exam. Lab Data Lab results reviewed: Yes I reviewed the patient's lab results. Labs: 09/03/20 14:04 Urine - Reflex from Ua Urine Culture - Preliminary Gram Positive Mely,Mixed Laboratory Tests Range/Units 09/03/20 09/03/20 09/03/20 13:10 13:10 13:22 WBC (4.4-10.8) 10^3/uL RBC (3.93-5.22) 10^6/uL Hgb (11.2-15.7) g/dL Hct (36.0-46.0) % MCV (80-95) fL MCH (27.0-33.0) pg MCHC (32.0-36.0) % RDW (11.7-14.6) % Plt Count (130-400) 10^3/uL MPV (8.0-11.0) fL Immature Gran % Neutrophils % Lymphocytes % Monocytes % Eosinophils % Basophils % Nucleated RBC % % Absolute Neutrophils (1.2-6.7) 10^3/uL Absolute Lymphocytes (1.2-3.4) 10^3/uL Absolute Monocytes (0.1-0.8) 10^3/uL Absolute Eosinophils (0.0-0.7) 10^3/uL Absolute Basophils (0.0-0.2) 10^3/uL Sodium (136-145) mmol/L 140 Potassium (3.5-5.1) mmol/L 3.7 Chloride (98-107) mmol/L 104 Carbon Dioxide (21.0-32.0) mmol/L 25.1 Anion Gap (3-11) mmol/L 10.9 BUN (7-18) mg/dL 16 Creatinine (0.55-1.02) mg/dL 0.9 Estimated GFR/1.73 m2 (mL/min/1.73m2) >= 60.00 Glucose (74-106) mg/dL 101 Calcium (8.5-10.1) mg/dL 8.8 Total Bilirubin (0.2-1.0) mg/dL 0.7 AST (15-37) U/L 21 ALT (14-59) U/L 28 Alkaline Phosphatase (46-116) U/L 72 Total Protein (6.4-8.2) g/dL 7.0 Albumin (3.4-5.0) g/dL 3.7 Lipase (73-393) U/L 72 Urine Color (Yellow) Urine Clarity (Clear) Urine pH (5-8) Ur Specific Henry (1.005-1.025) Urine Protein (Negative) mg/dL Urine Ketones (Negative) mg/dL Urine Blood (Negative) Urine Nitrite (Negative) Urine Bilirubin (Negative) Urine Urobilinogen (Up TO 0.2) EU/dL Ur Leukocyte Esterase (Negative) Urine RBC (0-2) HPF Urine WBC (0-5) HPF Ur Epithelial Cells (Negative) HPF Urine Crystals (Negative) HPF Urine Bacteria (Negative) HPF Urine Casts (Negative) LPF Urine Mucus (Negative) Urine Other (Negative) Ur Culture Indicated? Urine Glucose (Negative) mg/dL Stool Campylobacter PCR Cancelled Stl C.difficile Tox PCR Cancelled Stool Salmonella PCR Cancelled Stool Shigella PCR Cancelled Shiga Toxin (PCR) Cancelled Range/Units 09/03/20 09/03/20 13:22 14:04 WBC (4.4-10.8) 10^3/uL 9.04 RBC (3.93-5.22) 10^6/uL 4.93 Hgb (11.2-15.7) g/dL 14.6 Hct (36.0-46.0) % 44.0 MCV (80-95) fL 89.2 MCH (27.0-33.0) pg 29.6 MCHC (32.0-36.0) % 33.2 RDW (11.7-14.6) % 13.5 Plt Count (130-400) 10^3/uL 207 MPV (8.0-11.0) fL 10.4 Immature Gran % 0.2 Neutrophils % 81.2 Lymphocytes % 11.6 Monocytes % 6.6 Eosinophils % 0.3 Basophils % 0.1 Nucleated RBC % % 0 Absolute Neutrophils (1.2-6.7) 10^3/uL 7.33 H Absolute Lymphocytes (1.2-3.4) 10^3/uL 1.05 L Absolute Monocytes (0.1-0.8) 10^3/uL 0.60 Absolute Eosinophils (0.0-0.7) 10^3/uL 0.03 Absolute Basophils (0.0-0.2) 10^3/uL 0.01 Sodium (136-145) mmol/L Potassium (3.5-5.1) mmol/L Chloride (98-107) mmol/L Carbon Dioxide (21.0-32.0) mmol/L Anion Gap (3-11) mmol/L BUN (7-18) mg/dL Creatinine (0.55-1.02) mg/dL Estimated GFR/1.73 m2 (mL/min/1.73m2) Glucose (74-106) mg/dL Calcium (8.5-10.1) mg/dL Total Bilirubin (0.2-1.0) mg/dL AST (15-37) U/L ALT (14-59) U/L Alkaline Phosphatase (46-116) U/L Total Protein (6.4-8.2) g/dL Albumin (3.4-5.0) g/dL Lipase (73-393) U/L Urine Color (Yellow) Yellow Urine Clarity (Clear) Clear Urine pH (5-8) 5.5 Ur Specific Henry (1.005-1.025) >= 1.030 H Urine Protein (Negative) mg/dL 30 H Urine Ketones (Negative) mg/dL 15 H Urine Blood (Negative) Moderate H Urine Nitrite (Negative) Negative Urine Bilirubin (Negative) Small H Urine Urobilinogen (Up TO 0.2) EU/dL 0.2 Ur Leukocyte Esterase (Negative) Negative Urine RBC (0-2) HPF 3-5 H Urine WBC (0-5) HPF 3-5 Ur Epithelial Cells (Negative) HPF Rare Urine Crystals (Negative) HPF Negative Urine Bacteria (Negative) HPF Many Urine Casts (Negative) LPF Negative Urine Mucus (Negative) Heavy Urine Other (Negative) Rare Renal Ur Culture Indicated? Yes Urine Glucose (Negative) mg/dL Negative Stool Campylobacter PCR Stl C.difficile Tox PCR Stool Salmonella PCR Stool Shigella PCR Shiga Toxin (PCR) HPI General Mode of arrival: ambulatory. Date/Time Provider Initiated Documentation: 09/03/20 12:47. Limitations to Documentation: no limitations. Information obtained by: patient and family. HPI Narrative: This is a 80-year-old female, past medical history of A. fib, takes Eliquis daily, asthma, COPD, who is visiting here from [place], here for another few days and then subsequently traveling to [facility], presenting to the ER stating that she generally does not feel well, fatigue, diarrhea that started this morning. Patient seen at the urgent care clinic just prior to arrival, urine dip noted a blood, sent to the ER for further evaluation. Patient denies recent illness, trauma, bad food exposure or sick contacts. She denies headache, fever, chest pain, neck pain, shortness of breath, nausea, vomiting, back pain, jesús hematuria, dysuria, constipation, black tarry stools or bright red blood in her stools, skin rash, pain or swelling in her legs. She does report mild diffuse intermittent abdominal pain, none right now. Denies any recent antibiotic use. Related Data Home Medications Medication Instructions Recorded Confirmed cholecalciferol (vitamin D3) 1,000 units PO DAILY 03/11/17 09/03/20 metoprolol tartrate 12.5 mg PO BID 03/11/17 09/03/20 zolpidem 5 mg PO HS PRN PRN 03/11/17 09/03/20 Eliquis 5 mg PO BID 09/03/20 09/03/20 fluticasone 250 mcg-salmeterol 50 1 inh INHALATION DAILY ea 09/03/20 09/03/20 mcg/dose blistr powdr for inhalation ipratropium bromide 2 spray INTRANASAL TID 09/03/20 09/03/20 levalbuterol tartrate 45 2 inh INHALATION Q6H PRN 09/03/20 09/03/20 mcg/actuation aerosol inhaler simethicone 125 mg PO QPCHS 09/03/20 09/03/20 tiotropium bromide 18 mcg capsule 1 cap INHALATION DAILY 09/03/20 09/03/20 with inhalation device Allergies Allergy/AdvReac Type Severity Reaction Status Date / Time No Known Allergies Allergy Unverified 09/03/20 12:46 General Stated Complaint: Urinary STACI: 3 Review of Systems Constitutional Constitutional: Reports fatigue, Denies fever(s) and Denies weakness ENT Ears, Nose, Mouth, and Throat: Denies neck pain Cardiovascular Cardiovascular: Denies chest pain and Denies dyspnea Respiratory Respiratory: Denies cough and Denies dyspnea Gastrointestinal Gastrointestinal: Reports abdominal pain, Denies nausea and Denies vomiting Genitourinary Genitourinary: Denies dysuria Musculoskeletal Musculoskeletal: Denies neck pain Integumentary/Breasts Skin/Breast: Denies rash Neurologic Neurologic: Denies weakness Endocrine Endocrine: Reports fatigue Hematologic/Lymphatic Hematologic/Lymphatic: Reports easy bleeding and Reports easy bruising PFSH Medical History A-fib Asthma COPD (chronic obstructive pulmonary disease) Ganglion, right wrist removed surgically Kidney stones Vision changes Surgical History H/O: hysterectomy Social History Smoking/Tobacco Use Status: Never Smoking risk assessment performed?: Yes Alcohol Intake: current Alcohol Intake frequency: holidays/special occasions only Substance use type: does not use Do you feel safe at home: Yes Do you feel safe in your relationship?: Yes Exam Const General: cooperative, healthy appearing, comfortable and no acute distress Orientation: alert, awake and oriented x3 HENMT Head: normal to inspection, normocephalic and atraumatic Face and sinus: normal facial exam Mouth: moist mucous membranes Eyes General: appearance normal, both eyes and all related structures Conjunctivae: conjunctivae normal Neck Neck: normal visual inspection, trachea midline and supple Resp Effort & Inspection: normal respiratory effort and able to speak in complete sentences Auscultation: clear to auscultation bilaterally Cardio Rate: regular rate Rhythm: regular rhythm GI Palpation: soft, not firm, no guarding, no pulsatile masses and nontender Auscultation: normal bowel sounds Back/Spine/Pelvis Back: No back tenderness Skin General skin exam: no rashes or lesions noted Neuro General: patient alert, patient awake, moves all extremities and no focal motor deficits Cognition: normal cognition Speech: speech normal Gait: normal gait Motor: muscle tone normal throughout Sensory Exam: no sensory deficits noted Extrem General: normal to inspection, full ROM and capillary refill normal Psych Appearance: grossly normal Mental Status: mental status grossly normal Course Vital Signs Vital signs: Vital Signs Temperature 36.2 C L 09/03/20 12:42 Pulse 68 09/03/20 12:42 Respiratory Rate 18 09/03/20 12:42 Blood Pressure 111/58 L 09/03/20 12:42 Pulse Oximetry 96 09/03/20 12:42 Temperature 36.2 C L 09/03/20 12:42 Temperature Source Skin 09/03/20 12:42 Pulse 68 09/03/20 12:42 Respiratory Rate 18 09/03/20 12:42 Blood Pressure 111/58 L 09/03/20 12:42 Blood Pressure Position Sitting 09/03/20 12:42 Pulse Oximetry 96 09/03/20 12:42 Oxygen Delivery Method Room Air 09/03/20 12:42 Oxygen Flow Rate 0 09/03/20 12:42 Pain Level 0 09/03/20 12:42
[2020-09-03] MEDS: Normal Saline 1,000 ML 1000 ML IV (13:27)
[2020-09-03 13:29] LABS: Abs Immature Grans 0.02 10^3/uL (0.0-0.06); Absolute Basophil Count 0.01 10^3/uL (0.0-0.2); Absolute Eosinophil Count 0.03 10^3/uL (0.0-0.7); Absolute Lymphocyte Count 1.05 10^3/uL (1.2-3.4); Absolute Neutrophil Count 7.33 10^3/uL (1.2-6.7); Basophils % 0.1; Eosinophils % 0.3; HGB 14.6 g/dL (11.2-15.7); Immature Grans % 0.2; Lymphocytes % 11.6; MCH 29.6 pg (27.0-33.0); MCHC 33.2 % (32.0-36.0); MCV 89.2 fL (80-95); MPV 10.4 fL (8.0-11.0); Monocytes % 6.6; Neutrophils % 81.2; Nucleated RBC 0 %; Platelet Count 207 10^3/uL (130-400); RBC 4.93 10^6/uL (3.93-5.22); RDW 13.5 % (11.7-14.6); RDW-SD 44.7 fL; WBC 9.04 10^3/uL (4.4-10.8)
--- NOTE | 2020-09-03 13:33 | NUR.NOTE ---
[phone] han byrne md PCP
[2020-09-03 13:42] LABS: ALT 28 U/L (14-59); AST 21 U/L (15-37); Albumin 3.7 g/dL (3.4-5.0); Alkaline Phosphatase 72 U/L (46-116); Anion Gap 10.9 mmol/L (3-11); BUN 16 mg/dL (7-18); Bilirubin, Total 0.7 mg/dL (0.2-1.0); CO2 25.1 mmol/L (21.0-32.0); CREATININE 0.9 mg/dL (0.55-1.02); Calcium 8.8 mg/dL (8.5-10.1); Chloride 104 mmol/L (98-107); Glucose 101 mg/dL (74-106); Lipase 72 U/L (73-393); Potassium 3.7 mmol/L (3.5-5.1); Sodium 140 mmol/L (136-145)
[2020-09-03 14:11] LABS: Bilirubin Small (Negative); Blood Moderate (Negative); Clarity Clear (Clear); Glucose Negative (Negative); Ketones 15 mg/dL (Negative); Leukocyte Esterase Negative (Negative); Nitrite Negative (Negative); Specific Gravity >= 1.030 (1.005-1.025); Urobilinogen 0.2 EU/dL (Up TO 0.2); pH 5.5 (5-8)
[2020-09-03 14:25] LABS: Bacteria Many HPF (Negative); C & S Indicated? Yes; Casts Negative LPF (Negative); Crystals Negative HPF (Negative); Epithelial Cells Rare HPF (Negative); Mucus Heavy (Negative); Other Cells Rare Renal (Negative)
--- NOTE | 2020-09-03 14:45 | DI.CT_ITS ---
Exam(s) CT ABDOMEN PELVIS W EXAM: CT ABDOMEN PELVIS W CLINICAL HISTORY: Hematuria, on Eliquis, feels ill, diarrhea. TECHNIQUE: Imaging Protocol: Axial computed tomography images with coronal and sagittal reformatted images were created and reviewed CONTRAST MATERIAL: Intravenous: Omnipaque 350 Contrast volume:100ml Oral: no COMPARISON: CR CHEST 2 VIEWS PA,LAT from 03/11/2017 FINDINGS: ABDOMEN: Lung Bases: Dependent changes posterior costophrenic angles. Aorta tortuous at the thoraco abdominal junction. Small hiatal hernia. Liver: Normal density. No measurable mass. Gallbladder and biliary tract: No radiodense calculus or dilation. Pancreas: Normal density, no abnormal calcifications or inflammatory process. Spleen: Normal. Kidneys: Normal size, contour and axis. 10 by 5 millimeter stone lower pole left kidney. No masses s een. No perinephric collection. No hydronephrosis. Adrenal glands: No masses seen. Abdominal Aorta: Abdominal portion non-dilated. Tortuosity and mild atherosclerotic changes. PELVIS: Bladder: Symmetric distention, no gross wall thickening. Bowel: Diverticulosis descending and sigmoid colon. No evidence of diverticulitis. Mildly fluid-glo led loops of small bowel. Some fluid in the ascending and transverse colon. No obstruction or bowel wall thickening. Peritoneal cavity: No ascites, collection or mesenteric inflammatory response. Bones: Mild T12 compression fracture, unchanged from 2013 chest x-ray. Degenerative disc changes. D egenerative changes are noted in both hips. A bone island is noted in the right superior acetabulum. Reproductive organs: Hysterectomy. Right-sided simple ovarian cyst. Lymph nodes: Unremarkable. Impression: 1. 10 millimeter nonobstructing stone lower pole left kidney. 2. Diverticulosis without evidence of diverticulitis. Mild amount of fluid in the colon and distal small bowel. No wall thickening or pneumatosis. The findings were called to Ian Chicas of the emergency department after completion of the exam. RADIATION DOSE DELIVERED: 946.23mGy.cm Total DLP DATA REPOSITORY: All CT scans at this facility are submitted to the National Radiology Data Registry (NRDR) Dose Index Registry (DIR) with the [employer] (ACR). RADIATION OPTIMIZATION: All CT scans at this facility use at least one of these dose optimization te chniques: automated exposure control; mA and/or kV adjustment per patient size (includes targeted exa ms where dose is matched to clinical indication); or iterative reconstruction.
[2020-09-03] MEDS: Omnipaque 350 MG/ML 100 ML BTL IJ (15:41)
[2020-09-03] MEDS: Normal Saline - Diluent 50 ML VIAL IV (15:42)
[2020-09-03 18:09] VITALS: BP 111/58; PULSE 68; RESP 18; TEMP 36.6
== END 2020-09-03 16:21 | disposition home or self-care (01) ==
PROVIDERS: Emergency Provider Physician Assistant
DX: R53.1 Weakness (principal); R19.7 Diarrhea, unspecified; R31.9 Hematuria, unspecified; N20.0 Calculus of kidney
CPT/HCPCS: 36415; 80053; 83690; 87493; 87505; 96360; 99285; 74177; 81003; 81015; 85025; 87086; 99284; J3490